=== PATIENT | female | born 1940 | race Caucasian/White ===

== ENCOUNTER 2021-09-19 10:18 | Outpatient (CLI) | payer MEDICARE, SELFPAY ==
[2021-09-19 12:01] LABS: Albumin* 4.3 g/dL (3.3-5.0); Chloride* 104 mmol/L (96-114)
[2021-09-19 12:02] LABS: Potassium* 3.7 mmol/L (3.6-5.1); Sodium* 139 mmol/L (135-149)
[2021-09-19 12:04] LABS: Aspartate Amino Transferase* 24 U/L (12-35); Bilirubin Total* 1.4 mg/dL (0.1-1.5); Blood Urea Nitrogen* 16 mg/dL (7-30); Carbon Dioxide* 27 mmol/L (20-32); Cholesterol* 216 mg/dL (90-199); Creatinine* 0.7 mg/dL (0.5-1.5); Estimated Glomerular Filt Rate 87.92; Glucose* 106 mg/dL (60-115); Total Protein* 6.7 g/dL (6.0-8.3)
[2021-09-19 12:05] LABS: Alanine Aminotransferase* 14 U/L (4-35); Alkaline Phosphatase* 105 U/L (40-150); Calcium* 9.2 mg/dL (8.4-10.6); Triglycerides* 138 mg/dL (40-149)
[2021-09-19 12:22] LABS: HDL Cholesterol* 114 mg/dL (>=50); LDL Cholesterol Calculated 74 mg/dL (<100)
== END 2021-09-19 10:19 | disposition home or self-care (01) ==
PROVIDERS: PCP Internal Medicine; Visit Provider Internal Medicine
DX: I10 Essential (primary) hypertension (principal); G45.9 Transient cerebral ischemic attack, unspecified; L50.9 Urticaria, unspecified; Z79.899 Other long term (current) drug therapy
CPT/HCPCS: 80053; 80061

== ENCOUNTER 2021-09-28 18:41 | Emergency (ER) | payer MEDICARE, SELFPAY ==
--- NOTE | 2021-09-28 19:25 | ED.NURSE ---
Pt was told she would be placed in next room, doesn't wish to wait any longer. Pt signed refusal of service form.
== END 2021-09-28 19:35 | disposition left against medical advice (07) ==
PROVIDERS: PCP Internal Medicine
DX: Z53.21 Procedure and treatment not carried out due to patient leaving prior to being seen by health care provider (principal)
CPT/HCPCS: 99281

== ENCOUNTER 2021-10-12 18:11 | Emergency (ER) | payer MEDICARE, SELFPAY ==
[2021-10-12 18:14] VITALS: BP 146/66; PULSE 84; RESP 18; TEMP 35.9; O2SAT 96; BMI 29.8
--- NOTE | 2021-10-12 18:34 | CRLHL7_ITS ---
For Patients: As a result of the Century Cures Act, medical imaging exams and procedure reports are released immediately into your electronic medical record. You may view this report before your referring provider. If you have questions, please contact your health care provider. INDICATION: stroke like symptoms, hx TIAs TECHNIQUE: Head CT without contrast. COMPARISON: CT head March 05, 2019 FINDINGS: CSF spaces: Within normal limits for age. Brain parenchyma and extra-axial spaces: There are nonspecific low attenuation white matter changes consistent with chronic microvascular disease. No intraparenchymal hemorrhage or extra-axial fluid collection. Skull base and calvarium: The visualized paranasal sinuses and mastoid air cells demonstrate no acute or significant findings. The visualized orbits are grossly unremarkable. No skull fractures. IMPRESSION: Chronic changes without acute intracranial abnormality on this noncontrast CT. Specifically, no evidence of intracranial hemorrhage. If there is further clinical concern for acute/subacute ischemia would recommend further evaluation with MRI which would be more sensitive. Please note that all CT scans at this facility use dose modulation, iterative reconstruction, and/or weight-based dosing when appropriate to reduce radiation dose to as low as reasonably achievable. Dictated by Mitch George MD @ 10/12/2021 7:22:34 PM (Electronically Signed)
[2021-10-12 18:50] LABS: Basophils Absolute Auto 0.04 K/uL (0.00-0.30); Basophils Percent Auto 0.5 % (0.0-3.0); Eosinophils Absolute Auto 0.15 K/uL (0.00-0.50); Hematocrit 45.9 % (33.0-51.0); Hemoglobin* 15.9 gm/dL (12.0-16.0); Immature Granulocytes Abs Auto 0.02 K/uL (0.00-0.30); Lymphocytes Absolute Auto 2.01 K/uL (0.90-2.90); Lymphocytes Percent Auto 26.1 % (20-44); Mean Corpuscular HGB Conc 35 gm/dL (32-36); Mean Corpuscular Hemoglobin 30 pg (26-34); Mean Corpuscular Volume 88 fL (80-100); Monocytes Percent Auto 10.3 % (0.0-11.0); Neutrophils Absolute Auto 4.68 K/uL (1.7-7.0); Neutrophils Percent Auto 60.8 % (42.0-72.0); Platelet Count* 258 K/uL (140-440); RDW Coefficient of Variation % 12.4 % (11.5-15.5); Red Blood Count 5.24 m/uL (4.00-5.20); White Blood Count* 7.69 K/uL (4.50-11.00)
--- NOTE | 2021-10-12 18:51 | ED_ITS ---
HPI - General Adult General Chief complaint: Neuro Symptoms/Altered Deficit Stated complaint: trouble speaking/numb arm Time Seen by Provider: 10/12/21 18:14 Source: patient Mode of arrival: ambulatory Limitations: no limitations History of Present Illness HPI narrative: 80-year-old female coming in today concerned about stroke. She states that earlier this evening she had an episode where her entire right arm started tingling and she had tingling and numbness of the right side of her mouth with difficulty speaking. She states that it lasted about 45 minutes but now has resolved. She has had TIAs before, usually affecting the right arm, but she states that it felt the exact same way. She states that she does not have a headache, denies recent illness, no fevers or chills. She denies nausea or vomiting. Again symptoms have resolved but she is concerned about what happened. She is on daily aspirin and Plavix. She is not on a statin. Related Data Home Medications Medication Instructions Recorded Confirmed amlodipine 10 mg tablet 10 mg PO DAILY 09/19/21 10/12/21 aspirin 81 mg chewable tablet 1 tab PO DAILY 09/19/21 10/12/21 clopidogrel 75 mg tablet 75 mg PO .Bedtime 09/19/21 10/12/21 losartan 50 mg tablet 50 mg PO DAILY 09/19/21 10/12/21 Previous Rx's Medication Instructions Recorded apixaban 2.5 mg tablet (Eliquis) 2.5 mg PO BID #60 tabs 10/12/21 metoprolol tartrate 25 mg tablet 12.5 mg PO BID #30 tabs 10/12/21 Allergies Allergy/AdvReac Type Severity Reaction Status Date / Time Cephalosporins Allergy Intermediate Rash Verified 10/12/21 18:22 penicillin V Allergy Intermediate Rash Verified 10/12/21 18:22 Review of Systems Status of ROS: Reports: 10 or more systems reviewed and unremarkable except as noted in History and below [facility] Medical History Cervical radiculopathy due to osteoarthritis of spine Hip fracture History of transient ischemic attack TIA (transient ischemic attack) Surgical History S/P bladder repair (1998) 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 Alert and oriented. Answers questions appropriately. Mood and affect are appropriate. Thoughts are goal oriented and rational. No tangential or magical thinking noted. Patient speaks in full sentences without needing to catch her breath. She does have a tremor of her voice which she states is not new. Sometimes is difficult to understand, but she can usually repeat herself if that is the case. HEENT: Normocephalic atraumatic. Pupils are equally round reactive to light. Extraocular muscles are intact. Conjunctivae are moist without any icterus noted. Moist mucous membranes. Posterior pharynx is normal. Neck is soft without any lymphadenopathy or thyromegaly. No masses are appreciated. There is no facial asymmetry. Cardiovascular: Heart is irregularly irregular S1 and S2 are present without any murmurs. Lungs: Clear to auscultation bilaterally no wheezes rhonchi or rales are appreciated. Patient takes deep breaths without any discomfort. Abdomen: Soft and nontender nondistended with normal bowel sounds. Extremities: Bilateral lower extremities are without edema. Normal DP and PT pulses. Skin: Well perfused without any obvious rashes. Strength is 5/5 of the upper and lower extremities, however she has some difficulty with holding her leg against resistance on the right side secondary to hip surgery. Reflexes are 2+ and symmetric at the knees. Cranial nerves 3- 12 are normal. [id number] is normal aside from her tremor. There is no nystagmus either horizontally or vertically. 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 Const: Vital Signs, click to edit/add: Vital Signs - 24 hr 10/12/21 18:14 10/12/21 19:30 10/12/21 19:35 Temperature 96.6 F L Pulse Rate [Left P ulse Oximeter] 97 Pulse Rate [Right Pulse Oximeter] 84 111 H Respiratory Rate 18 18 Blood Pressure [Ri ght Upper Arm] 146/66 H 163/114 H Pulse Oximetry 96 94 Oxygen Delivery Me thod Room Air Room Air Course Course Hospital Course: Head CT was unremarkable. Lab work was unremarkable. EKG showed atrial fibrillation with a pulse of 95. This appears to be new onset, the last EKG I can find is from 2019 is showed normal sinus rhythm. Patient herself says that she has never been diagnosed with atrial fibrillation in the past. During her stay she did fluctuate between a pulse of [address] up to 140. She remained asymptomatic from a cardiovascular standpoint, blood pressure remained stable and she was denying any chest pain dizziness or shortness of breath. Did consult with , cardiology at [facility], who recommended stopping Plavix and aspirin starting the patient on Eliquis. She was in agreement with starting the metoprolol. She recommended a cardiology follow-up appointment with an echocardiogram in the near future. Consultations Consultation #1: [facility] account review specialist Vital Signs Vital signs: Initial Vital Signs Temperature 96.6 F L 10/12/21 18:14 Temperature Source Temporal Artery Scan 10/12/21 18:14 Pulse Rate 84 10/12/21 18:14 Pulse Rhythm 10/12/21 18:14 Respiratory Rate 18 10/12/21 18:14 Blood Pressure 146/66 H 10/12/21 18:14 Blood Pressure Mean 92 10/12/21 18:14 Blood Pressure Position Sitting 10/12/21 18:14 Pulse Oximetry 96 10/12/21 18:14 Oxygen Delivery Method 10/12/21 18:14 Vital Signs Temperature 96.6 F L 10/12/21 18:14 Pulse Rate 84 10/12/21 18:14 Respiratory Rate 18 10/12/21 18:14 Blood Pressure 146/66 H 10/12/21 18:14 Pulse Oximetry 96 10/12/21 18:14 Oxygen Delivery Method 10/12/21 18:14 Temperature 96.6 F L 10/12/21 18:14 Pulse Rate 111 H 10/12/21 19:35 Respiratory Rate 18 10/12/21 19:35 Blood Pressure 163/114 H 10/12/21 19:35 Pulse Oximetry 94 10/12/21 19:35 Oxygen Delivery Method 10/12/21 19:35 Medical Decision Making MDM Narrative Medical decision making narrative: 80-year-old female with probable TIA now resolved. New onset atrial fibrillat ion with RVR-we will stop the patient's Plavix and aspirin and start her on Eliquis. We will also start her on metoprolol, 1st dose given in the ER today. She will follow up with her primary care provider this coming week and recommend following up with cardiology. Medical Records Medical records reviewed: Yes I reviewed the patient's medical records Lab Data Lab results reviewed: Yes I reviewed the patient's lab results Labs: Lab Results 10/12/21 10/12/21 Range/Units 01:52 01:52 WBC 7.69 (4.50-11.00) K/uL RBC 5.24 H (4.00-5.20) m/uL Hgb 15.9 (12.0-16.0) gm/dL Hct 45.9 (33.0-51.0) % MCV 88 (80-100) fL MCH 30 (26-34) pg MCHC 35 (32-36) gm/dL RDW Coeff of Sonia 12.4 (11.5-15.5) % Plt Count 258 (140-440) K/uL Neut % (Auto) 60.8 (42.0-72.0) % Lymph % (Auto) 26.1 (20-44) % Centre % (Auto) 10.3 (0.0-11.0) % Eos % (Auto) 2.0 (0.0-7.0) % Baso % (Auto) 0.5 (0.0-3.0) % Neut # (Auto) 4.68 (1.7-7.0) K/uL Lymph # (Auto) 2.01 (0.90-2.90) K/uL Centre # (Auto) 0.80 (0.00-0.90) K/UL Eos # (Auto) 0.15 (0.00-0.50) K/uL Baso # (Auto) 0.04 (0.00-0.30) K/uL Abs Immat Gran (auto) 0.02 (0.00-0.30) K/uL Sodium 135 (135-149) mmol/L Potassium 3.3 L (3.6-5.1) mmol/L Chloride 104 (96-114) mmol/L Carbon Dioxide 18 L (20-32) mmol/L BUN 20 (7-30) mg/dL Creatinine 0.9 (0.5-1.5) mg/dL Estimated Creat Clear 41.05 Estimated GFR 65 ml/min Glucose 113 (60-115) mg/dL Calcium 9.8 (8.4-10.6) mg/dL Imaging Data CT scan - head: Attestation: I have reviewed the pertinent imaging results. Radiologist's impression: FINDINGS: CSF spaces: Within normal limits for age. Brain parenchyma and extra-axial spaces: There are nonspecific low attenuation white matter changes consistent with chronic microvascular disease. No intrapare nchymal hemorrhage or extra-axial fluid collection. Skull base and calvarium: The visualized paranasal sinuses and mastoid air cells demonstrate no acute or significant findings. The visualized orbits are grossly unremarkable. No skull fractures. IMPRESSION: Chronic changes without acute intracranial abnormality on this noncontrast CT. Specifically, no evidence of intracranial hemorrhage. If there is further clinical concern for acute/subacute ischemia would recommend further evaluation with MRI which would be more sensitive. ECG Data Attestation: I personally reviewed and interpreted this ECG as follows: (Atrial fibrillation with a pulse of 95) Discharge Plan Discharge Clinical Impression: TIA (transient ischemic attack), Atrial fibrillation with RVR Patient Disposition: Home, Self-Care Condition: Improved Additional Instructions: Tomorrow, Stop Plavix and Aspirin - Start Eliquis. This is a blood thinner medication to prevent blood clots. You will also start metoprolol to slow down your pulse. Follow-up with primary care provider this coming week. You should also follow-up with Cardiology, you are due for an echocardiogram. Prescriptions: New Eliquis 2.5 mg tablet 2.5 mg PO BID Qty: 60 0RF metoprolol tartrate 25 mg tablet 12.5 mg PO BID Qty: 30 0RF No Action aspirin 81 mg tablet,chewable 1 tab PO DAILY amlodipine 10 mg tablet 10 mg PO DAILY clopidogrel 75 mg tablet 75 mg PO .Bedtime losartan 50 mg tablet 50 mg PO DAILY Follow Up/Referrals: Josué Jorge MD [Primary Care Provider] - Stand Alone Forms: [employer] Info Instructions
[2021-10-12 18:57] LABS: Slide Review Reflex No
[2021-10-12 19:09] LABS: Chloride* 104 mmol/L (96-114); Potassium* 3.3 mmol/L (3.6-5.1); Sodium* 135 mmol/L (135-149)
[2021-10-12 19:11] LABS: Creatinine* 0.9 mg/dL (0.5-1.5); Est. Creatinine Clearance* 41.05; Estimated Glomerular Filt Rate 65 ml/min
[2021-10-12 19:12] LABS: Blood Urea Nitrogen* 20 mg/dL (7-30); Calcium* 9.8 mg/dL (8.4-10.6); Carbon Dioxide* 18 mmol/L (20-32); Glucose* 113 mg/dL (60-115)
[2021-10-12 19:30] VITALS: PULSE 97
[2021-10-12 19:35] VITALS: BP 163/114; PULSE 111; RESP 18; O2SAT 94
[2021-10-12 19:45] VITALS: BP 142/93; PULSE 104; RESP 18; O2SAT 94
[2021-10-12] MEDS: METOPROLOL TARTRATE 25 MG TABLET PO (19:52)
[2021-10-12 20:05] VITALS: BP 163/93; PULSE 99; RESP 18; O2SAT 95
--- NOTE | 2021-10-12 20:13 | ED.NURSE ---
afib care notes printed off for patient.
== END 2021-10-12 20:20 | disposition home or self-care (01) ==
PROVIDERS: Emergency Provider Family Medicine; PCP Internal Medicine
DX: G45.9 Transient cerebral ischemic attack, unspecified (principal); I48.20 Chronic atrial fibrillation, unspecified
CPT/HCPCS: 36415; 70450; 80048; 85025; 93005; 99285; A9270

== ENCOUNTER 2021-10-14 08:18 | Emergency (ER) | payer MEDICARE, SELFPAY ==
[2021-10-14 08:21] VITALS: BP 121/70; PULSE 91; RESP 18; TEMP 35.9; O2SAT 94; BMI 30.4
--- NOTE | 2021-10-14 08:56 | ED_ITS ---
HPI - GI Bleed General Chief complaint: GI Bleed Stated complaint: BLACK STOOLS Time Seen by Provider: 10/14/21 08:32 History of Present Illness HPI Narrative: This 80-year-old female was seen a couple days ago in the emergency department and found to have new onset atrial fibrillation with rapid ventricular response. She had been taking aspirin and Plavix prior to that because of history of transient ischemic attacks. She discontinued that medicine and started Eliquis. She comes in today reporting black tarry stools. She took her last dose of Eliquis last night. She states that the black stools began about 12 hours after taking the 1st dose of Eliquis. She does report feeling tired but denies having any lightheadedness or shortness of breath. Related Data Home Medications Medication Instructions Recorded Confirmed amlodipine 10 mg tablet 10 mg PO DAILY 09/19/21 10/14/21 aspirin 81 mg chewable tablet 1 tab PO DAILY 09/19/21 10/14/21 clopidogrel 75 mg tablet 75 mg PO .Bedtime 09/19/21 10/14/21 losartan 50 mg tablet 50 mg PO DAILY 09/19/21 10/14/21 Previous Rx's Medication Instructions Recorded apixaban 2.5 mg tablet (Eliquis) 2.5 mg PO BID #60 tabs 10/12/21 metoprolol tartrate 25 mg tablet 12.5 mg PO BID #30 tabs 10/12/21 pantoprazole 20 mg tablet,delayed 20 mg PO DAILY #30 tabs 10/14/21 release (Protonix) Allergies Allergy/AdvReac Type Severity Reaction Status Date / Time Cephalosporins Allergy Intermediate Rash Verified 10/14/21 08:27 penicillin V Allergy Intermediate Rash Verified 10/14/21 08:27 Review of Systems Status of ROS: Reports: 10 or more systems reviewed and unremarkable except as noted in History and below Narrative: Constitutional: No fevers, no weight gain or loss. Generalized fatigue. Eyes: No discharge. No vision changes. HENT: No congestion, no sore throat, no ear pain. Cardiovascular: No chest pain, no palpitations. Respiratory: No shortness of breath, no wheezes, no cough. Gastrointestinal: No vomiting, no diarrhea. Black tarry stools. Chronic mild abdominal pain. Genitourinary: No dysuria, no hematuria. Musculoskeletal: Normal range of motion. Skin: No rashes, no pruritis. Neurological: No dizziness, weakness, sensory change, speech change. Endo/Heme/Allergies: No bruising or bleeding. No polydipsia. Pysch: no suicidality, no anxiety, no insomnia. All other systems reviewed and are negative. 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 HEENT: Normocephalic, atraumatic. Neck: Normal range of motion. Nontender. Supple. Heart: Regular. No murmurs. Normal rate. Intact distal pulses. Lungs: Clear to auscultation. No chest discomfort. No wheezes, rhonchi, or rales. Abdomen: Normal bowel sounds. Diffuse mild tenderness. No rebound tenderness. Genitalia: Deferred. Back: No midline tenderness. Normal range of motion. Extremities: Normal range of motion. No injury. Skin: Intact. No rash. Warm. No erythema or pallor. Neurologic: No altered sensation. No weakness. Alert and oriented. Psychiatric: No suicidality. No anxiety or depression. No insomnia. Nursing notes and vitals signs are reviewed. Const: Vital Signs, click to edit/add: Vital Signs - 24 hr 10/14/21 08:21 10/14/21 09:40 Temperature 96.7 F L Pulse Rate [Right Pulse Oximeter] 91 73 Respiratory Rate 18 Blood Pressure [Ri ght Upper Arm] 121/70 138/73 Pulse Oximetry 94 95 Oxygen Delivery Me thod Room Air Room Air Course Vital Signs Vital signs: Initial Vital Signs Temperature 96.7 F L 10/14/21 08:21 Temperature Source Temporal Artery Scan 10/14/21 08:21 Pulse Rate 91 10/14/21 08:21 Pulse Rhythm 10/14/21 08:21 Respiratory Rate 18 10/14/21 08:21 Blood Pressure 121/70 10/14/21 08:21 Blood Pressure Mean 87 10/14/21 08:21 Blood Pressure Position Sitting 10/14/21 08:21 Pulse Oximetry 94 10/14/21 08:21 Oxygen Delivery Method 10/14/21 08:21 Vital Signs Temperature 96.7 F L 10/14/21 08:21 Pulse Rate 91 10/14/21 08:21 Respiratory Rate 18 10/14/21 08:21 Blood Pressure 121/70 10/14/21 08:21 Pulse Oximetry 94 10/14/21 08:21 Oxygen Delivery Method 10/14/21 08:21 Temperature 96.7 F L 10/14/21 08:21 Pulse Rate 73 10/14/21 09:40 Respiratory Rate 18 10/14/21 08:21 Blood Pressure 138/73 10/14/21 09:40 Pulse Oximetry 95 10/14/21 09:40 Oxygen Delivery Method 10/14/21 09:40 MDM - GI Bleed MDM Narrative Medical decision making narrative: This patient comes in reporting black stools and was recently started on Eliquis because of new onset of atrial fibrillation. She had an IV placed and received normal saline. She has maintained normal vital signs. She did receive an IV dose of Protonix 40 mg. Lab results returned with reassuring findings. Her hemoglobin is around 13. She states that she did get up to the bathroom and had a normal bowel movement that was not black. Additionally her EKG shows a normal sinus rhythm with occasional PACs. I advised her to discontinue the Eliquis. She can resume her Plavix but hold aspirin for about a week. She is okay to return home and is advised to return if recurrent symptoms happen. Lab Data Labs: Lab Results 10/14/21 10/14/21 10/14/21 Range/Units 09:15 09:15 09:15 WBC 7.43 (4.50-11.00) K/uL RBC 4.37 (4.00-5.20) m/uL Hgb 13.4 (12.0-16.0) gm/dL Hct 39.1 (33.0-51.0) % MCV 90 (80-100) fL MCH 31 (26-34) pg MCHC 34 (32-36) gm/dL RDW Coeff of Sonia 12.3 (11.5-15.5) % Plt Count 234 (140-440) K/uL Neut % (Auto) 78.7 H (42.0-72.0) % Lymph % (Auto) 12.8 L (20-44) % [place] % (Auto) 6.9 (0.0-11.0) % Eos % (Auto) 0.8 (0.0-7.0) % Baso % (Auto) 0.5 (0.0-3.0) % Neut # (Auto) 5.80 (1.7-7.0) K/uL Lymph # (Auto) 1.00 (0.90-2.90) K/uL [place] # (Auto) 0.50 (0.00-0.90) K/UL Eos # (Auto) 0.06 (0.00-0.50) K/uL Baso # (Auto) 0.04 (0.00-0.30) K/uL Abs Immat Gran (auto) 0.02 (0.00-0.30) K/uL INR 1.24 H (0.91-1.10) Sodium 138 (135-149) mmol/L Potassium 3.9 (3.6-5.1) mmol/L Chloride 109 (96-114) mmol/L Carbon Dioxide 24 (20-32) mmol/L BUN 56 H (7-30) mg/dL Creatinine 0.8 (0.5-1.5) mg/dL Estimated Creat Clear 39.39 Estimated GFR 75 ml/min Glucose 116 H (60-115) mg/dL Calcium 8.6 (8.4-10.6) mg/dL ECG Data Attestation: I personally reviewed and interpreted this ECG as follows: Interpretation: Sinus rhythm with occasional PACs. Rate is 82 beats per minute. There are no specific ST or T-wave abnormalities. Discharge Plan Discharge Clinical Impression: GI bleed Condition: Improved Additional Instructions: Discontinue Eliquis. Hold aspirin for about a week. Okay to resume taking Plavix. Follow-up with primary physician or return if recurrent symptoms happen. Take Protonix as directed. Prescriptions: New pantoprazole [Protonix] 20 mg tablet,delayed release (DR/EC) 20 mg PO DAILY Qty: 30 2RF No Action aspirin 81 mg tablet,chewable 1 tab PO DAILY Hold Instructions: started on eliquis amlodipine 10 mg tablet 10 mg PO DAILY clopidogrel 75 mg tablet 75 mg PO .Bedtime Hold Instructions: taking eliquis and stopped losartan 50 mg tablet 50 mg PO DAILY Eliquis 2.5 mg tablet 2.5 mg PO BID Qty: 60 0RF metoprolol tartrate 25 mg tablet 12.5 mg PO BID Qty: 30 0RF Follow Up/Referrals: Josué Jorge MD [Primary Care Provider] - Stand Alone Forms: [employer] Info Instructions
[2021-10-14] MEDS: PANTOPRAZOLE SODIUM 40 MG INJ IVP (09:23)
[2021-10-14] MEDS: 0.9 % SODIUM CHLORIDE 1000 ml 1,000 ML IV (09:23)
[2021-10-14 09:33] LABS: Basophils Absolute Auto 0.04 K/uL (0.00-0.30); Basophils Percent Auto 0.5 % (0.0-3.0); Eosinophils Absolute Auto 0.06 K/uL (0.00-0.50); Eosinophils Percent Auto 0.8 % (0.0-7.0); Hematocrit 39.1 % (33.0-51.0); Hemoglobin* 13.4 gm/dL (12.0-16.0); Immature Granulocytes Abs Auto 0.02 K/uL (0.00-0.30); Lymphocytes Percent Auto 12.8 % (20-44); Mean Corpuscular HGB Conc 34 gm/dL (32-36); Mean Corpuscular Hemoglobin 31 pg (26-34); Mean Corpuscular Volume 90 fL (80-100); Monocytes Percent Auto 6.9 % (0.0-11.0); Neutrophils Percent Auto 78.7 % (42.0-72.0); Platelet Count* 234 K/uL (140-440); RDW Coefficient of Variation % 12.3 % (11.5-15.5); Red Blood Count 4.37 m/uL (4.00-5.20); White Blood Count* 7.43 K/uL (4.50-11.00)
[2021-10-14 09:34] LABS: Slide Review Reflex No
[2021-10-14 09:37] LABS: Chloride* 109 mmol/L (96-114); Potassium* 3.9 mmol/L (3.6-5.1); Sodium* 138 mmol/L (135-149)
[2021-10-14 09:39] LABS: Creatinine* 0.8 mg/dL (0.5-1.5); Est. Creatinine Clearance* 39.39; Estimated Glomerular Filt Rate 75 ml/min
[2021-10-14 09:40] VITALS: BP 138/73; PULSE 73; O2SAT 95
[2021-10-14 09:40] LABS: Blood Urea Nitrogen* 56 mg/dL (7-30); Calcium* 8.6 mg/dL (8.4-10.6); Carbon Dioxide* 24 mmol/L (20-32); Glucose* 116 mg/dL (60-115)
[2021-10-14 09:41] LABS: INR 1.24 (0.91-1.10)
[2021-10-14 10:00] VITALS: BP 146/86; PULSE 73; O2SAT 97
== END 2021-10-14 10:33 | disposition home or self-care (01) ==
PROVIDERS: Emergency Provider Emergency Medicine Emergency Medical Services; PCP Internal Medicine
DX: K92.2 Gastrointestinal hemorrhage, unspecified (principal)
CPT/HCPCS: 36415; 80048; 85025; 85610; 93005; 96374; 99284; C9113; J7030

== ENCOUNTER 2021-11-05 12:45 | Outpatient (CLI) | payer MEDICARE, SELFPAY ==
--- OUTSIDE RECORDS SUMMARY | 2021-11-05 12:51 | XMS_ITS | Clinical Summary ---
:1940 Author Organization [facility] [place] [address] Care Team Providers Name Role Phone Josué Jorge MD Primary Care Provider Allergies Active Allergy Reactions Severity Noted Date Comments Cephalosporins Penicillins Erythema 01/23/2015 Medications Medication Sig Dispensed Refills Start Date End Date Status ATENOLOL 50 MG TAB take 1 tablet 0 Active (50mg) by oral route once daily ZESTRIL 40 MG TAB take 1 tablet 0 Active (40mg) by oral route once daily MULTIVITAMIN ORAL take 1 tablet 0 Active daily CALCIUM 600 600 MG TAB 1 tablet daily 0 Active PLAVIX 75 MG TAB take 1 tablet 0 Active (75mg) by oral route once daily amLODIPine (NORVASC) 5 2 07/29/2014 Active mg tablet lisinopril (PRINIVIL; 3 07/29/2014 Active ZESTRIL) 20 mg tablet Active Problems Problem Noted Date TIA (transient ischemic attack) 02/21/2017 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 Lumbar spondylosis 09/29/2014 Hallux valgus (acquired) 11/19/2007 Unspecified essential hypertension Obesity, unspecified Immunizations Name Administration Dates Next Due Influenza, IIV3 (Age >=3 years) 01/03/2006 Td (Age >=7 Years) 04/22/2006 Family History Medical History Relation Name Comments Heart Disease Father Hypertension Mother Stroke Mother Relation Name Status Comments Father Mother Social History Tobacco Use Types Packs/Day Years Used Date Never Smoker Tobacco Cessation: Counseling Given: Yes Alcohol Use Standard Drinks/Week Comments Yes 16.7 (1 standard drink = 0.6 oz pure alc ohol) Sex Assigned at Date Recorded Not on file Obstetrics History Para Term AB IAB SAB Ectopic Multiple Living Live Births 3 3 Date Outcome GA Total Labor/2nd/3rd Weight Sex Delivery Anes PTL Essence A 1 A5 Name Clin Labor Para Para Para Last Filed Vital Signs Vital Sign Reading Time Taken Comments Blood Pressure 148/81 04/06/2015 7:47 AM MOUNTER Pulse 62 04/06/2015 7:47 AM MOUNTER Temperature 36.8 ??C (98.2 ??F) 04/06/2015 7:47 AM MOUNTER Respiratory Rate - - Oxygen Saturation 97% 04/06/2015 7:47 AM MOUNTER Inhaled Oxygen Concentration - - Weight 87.7 kg (193 lb 6.4 oz) 04/06/2015 7:47 AM MOUNTER Height 162.6 cm (5' 4.02) 04/06/2015 7:47 AM MOUNTER Body Mass Index 33.18 04/06/2015 7:47 AM MOUNTER Plan of Treatment Upcoming Encounters Date Type Specialty Care Team Description 11/05/2021 Orders Only Health Maintenance Due Date Last Done Comments COVID-19 vaccine series (#1) 04/30/1941 Tdap 1952 Depression screening for age 12+ 1953 Zoster (shingles) series for age 50+ (1 of 2) 10/29/1991 DEXA/DXA scan for age 65+ 2006 Pneumococcal series for age 65+ (1 - PCV) 2006 BMI (ht and wt on same day) for age 18+ 04/06/2016 04/06/19 16 Tetanus booster 04/22/2016 04/22/2006 Influenza for age 65+ 11/08/2021 01/03/2006 Results Not on filefrom Last 3 Months Insurance Payer Benefit Plan / Subscriber ID Effective Dates Phone Addre ss Type Group MEDICARE PART B MEDICARE PART B [id number] 2007-[employer] ATTN: CLAIMS - HB USE ONLY HB ONLY t [address] [facility] 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
== END 2021-11-05 12:46 | disposition home or self-care (01) ==
LOC: RAD 12:47
PROVIDERS: PCP Internal Medicine; Visit Provider Internal Medicine
DX: I48.91 Unspecified atrial fibrillation (principal); I34.0 Nonrheumatic mitral (valve) insufficiency
CPT/HCPCS: 93306

== ENCOUNTER 2022-07-01 12:46 | Outpatient (CLI) | payer MEDICARE, SELFPAY ==
--- NOTE | 2022-07-01 13:00 | CRLHL7_ITS ---
For Patients: As a result of the Cures Act, medical imaging exams and procedure reports are released immediately into your electronic medical record. You may view this report before your referring provider. If you have questions, please contact your health care provider. BILATERAL SCREENING MAMMOGRAM WITH COMPUTER-AIDED DETECTION AND TOMOSYNTHESIS TECHNIQUE: CC and MLO views were obtained. These mammographic images have been obtained using full-field digital technique. These mammographic images were interpreted with the benefit of computer-aided detection. Breast Tomosynthesis was used in this interpretation. COMPARISON FILM: 05/04/21, 04/21/20, 03/17/19 FINDINGS: The breasts are heterogeneously dense, which may obscure small masses. IMPRESSION: There is no radiographic evidence for malignancy. ASSESSMENT: BI-RADS Category 2: Benign RECOMMENDATION: Routine screening mammogram in 1 year. A lay language report of this examination will be provided to the patient. Cristian Dial M.D. Diagnostic/Nuclear Medicine Radiologist [email or web address] Transcribed: 8:36 a.m. PT/Dictated by: Cristian Dial MD @ 07/02/2022 8:24:00 AM (Electronically Signed)
== END 2022-07-01 12:47 | disposition home or self-care (01) ==
LOC: MAMMO 12:47
PROVIDERS: PCP Internal Medicine; Visit Provider Internal Medicine
DX: Z12.31 Encounter for screening mammogram for malignant neoplasm of breast (principal); R92.2 Inconclusive mammogram
CPT/HCPCS: 77063; 77067

== ENCOUNTER 2023-03-21 11:51 | Outpatient (CLI) | payer MEDICARE, SELFPAY ==
--- OUTSIDE RECORDS SUMMARY | 2023-03-24 04:28 | XMS_ITS | Continuity of Care Document ---
Author Name Unknown Organization [facility] Address [address] [place] [address] Phone Care Team Providers Care Asbestos Worker Name Role Phone Manas Cline Unavailable Unavailable Allergies, Adverse Reactions, Alerts Substance Reaction Status Criticality Cephalosporins Active No Informatio n PENICILLIN whole body redness Active No Info rmation Medications Medication Instructions Dosage Effective Dates (start - stop) Status Comments AMLODIPINE BESILATE (unknown strength) Not Available - Active LOSARTAN POTASSIUM (unknown strength) Not Available - Active PLAVIX (unknown strength) Not Available - Active Procedures Procedure Date Office/Outpatient Visit,Dionne Prado 2018 Office consultation, moderate 8 Advance Directives Directive Yes / No Effective Date File Name No Information Encounters Encounter Description Practice Location Reason(s) For Visit Diagnoses Date Provider Providers Copied on Encounter [facility], [address], [place], [place], [address], [place] tel:[phone] [facility] No Information 9 Harry Malagon. [facility], [address], [place], [place], [address] , [place]. tel:[phone] Office/Outpat ient Visit,Dionne [facility], [address], [place], [place], [address], [place] tel:[phone] [facility] [place] Cervicalgia 9 Harry Malagon. [facility], [address], [place], [place], [address] , [place]. tel:[phone] Referring Provider: [facility] [address] [place], [address]. tel:[phone] Office consultation, moderate Z [facility], [address], [place], [address], [place] tel:[phone] [facility] No Information Aug-0 8 Meena Reyes. [facility], [address] [place] [address], [address], [place], [place], [address] , [place]. tel:[phone] Referring Provider: Josué [facility]Department [facility] [address] [place], [address]. tel:[phone] Family History Family Member Type Diagnosis Age At Onset No Information Payers Payer name Insurance type Covered constitution party ID Zoltan bales(s) [facility] [id number] Medicare [facility] BL [id number] 1 Social History Type Description Quantity Date [...]
--- OUTSIDE RECORDS SUMMARY | 2023-03-24 04:28 | XMS_ITS | Clinical Summary ---
Author Name Unknown Organization [facility] Address [place], [place] [address] Care Team Providers Care Force Variation Equipment Tender Name Role Phone Josué Jorge MD Primary Care Provider Allergies Active Allergy Reactions Criticality Noted Date [...] CDT Oxygen Saturation 97% 04/06/2015 7:47 AM ANCHOR TACKER Inhaled Oxygen Concentration - - Weight 80.3 kg (177 lb) 11/09/2021 3:15 PM CDT Height 162.6 cm (5' 4.02) 04/06/2015 7:47 AM CS T Body Mass Index 30.37 04/06/2015 7:47 AM ANCHOR TACKER Plan of Treatment Health Maintenance Due Date [...] for age 65+ 11/08/2022 01/03/2006 Care Teams Force Variation Equipment Tender Relationship Specialty Start Date End Date Josué Jorge MD [address] [place], [place] [id number] PCP - General 12/13/14
== END 2023-03-21 11:52 | disposition home or self-care (01) ==
LOC: AMB 03-24 04:26
PROVIDERS: PCP Internal Medicine; Visit Provider Student in an Organized Health Care Education/Training Program
DX: R29.810 Facial weakness (principal); R53.1 Weakness
CPT/HCPCS: A0425; A0429

== ENCOUNTER 2023-03-21 12:07 | Emergency (ER) | payer MEDICARE, SELFPAY ==
[2023-03-21] VITALS (30 sets, daily range): BP systolic 107–140; BP diastolic 64–96; PULSE 75–113; RESP 16; TEMP 36.6; O2SAT 86–98
--- NOTE | 2023-03-21 12:19 | CRLHL7_ITS ---
For Patients: As a result of the Century Cures Act, medical imaging exams and procedure reports are released immediately into your electronic medical record. You may view this report before your referring provider. If you have questions, please contact your health care provider. INDICATION: Right leg weakness, bilateral hand/arm weakness. TECHNIQUE: CT head without contrast. COMPARISON: CT head dated 10/12/2021. FINDINGS: Cerebral parenchyma: No evidence of acute territorial infarct. No acute intraparenchymal hemorrhage. Bilateral basal ganglia calcifications noted. No significant mass effect/midline shift. Normal meyer-white matter differentiation. Extra-axial spaces: No extra-axial collection or hemorrhage. Ventricles: Unremarkable. Calvarium: Intact. Visualized paranasal sinuses/mastoid air cells: Mild polypoid mucosal thickening of the right maxillary sinus. Posterior fossa: No cerebellar tonsillar herniation. Visualized orbits: Thinning of the bilateral lens. No acute abnormality. IMPRESSION: No acute intracranial abnormality. Please note that all CT scans at this facility use dose modulation, iterative reconstruction, and/or weight-based dosing when appropriate to reduce radiation dose to as low as reasonably achievable. Dictated by Nayan Soler MD @ 03/21/2023 12:58:27 PM (Electronically Signed)
--- NOTE | 2023-03-21 12:28 | CRLHL7_ITS ---
For Patients: As a result of the Century Cures Act, medical imaging exams and procedure reports are released immediately into your electronic medical record. You may view this report before your referring provider. If you have questions, please contact your health care provider. INDICATION: Right leg and bilateral hand weakness. TECHNIQUE: Multisequence multiplanar MRI of the head without contrast. COMPARISON: MRI brain dated 12/18/2018. FINDINGS: No evidence of acute ischemia. Slight progression of scattered dose was confluent bilateral supratentorial white matter hyperintensities. Stable bilateral basal ganglia and thalamic lacunar type infarcts. No ventricular obstruction. Slight progression of mild diffuse parenchymal volume loss. Flow voids of the larger intracranial arteries are preserved. Normal calvarial bone marrow signal intensity. Evidence of prior cataract surgery. Paranasal sinuses and mastoid air cells are predominantly clear. IMPRESSION: 1. No acute intracranial abnormality. Specifically, no evidence of acute ischemia. 2. Slight progression of mild global parenchymal volume loss and chronic small vessel ischemic changes. 3. 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 Dictated by Gomez Beyer MD @ 03/21/2023 1:38:39 PM (Electronically Signed)
--- NOTE | 2023-03-21 12:35 | ED.GENADULT ---
HPI - General Adult General Chief complaint: Neuro Symptoms/Altered Deficit Stated complaint: CVA Time Seen by Provider: 03/21/23 12:18 History of Present Illness HPI narrative: Patient's symptoms started around 11 am reporting she feels weaker than usual. Family made decision to call EMS. 82-year-old woman presenting to the emergency department with concern of a stroke. She is brought here by EMS. Recollection is a little challenged initially reported as an hour prior but ultimately may has been as long as 2 hours prior to arrival here was trying to how work on assembly of upper she was making the. Suddenly realized she was having trouble manipulating it. She noted significant weakness in her right leg and shaking weakness in both hands. On arrival report was that had unilateral weakness with suspected stroke symptoms per report specifically the right leg. As I question further it appears that this is a chronic circumstance after a right total hip and a revision. who arrives later following initial imaging, was contacted by Yi when this all started. He found her shaking all over and unable to move otherwise; frozen. But alert. She does endorse underlying tremor disorder of some sort. Degree of workup and diagnosis is unclear to me. She is anticoagulated initially uncertain but looks like on review of records that has atrial fibrillation and is chronically anticoagulated with b.i.d. Eliquis. She reports a history of a stroke in the past; review of records suggest a TIA. No history of seizures noted in herself or family. She reports herself to be feeling better now; symptoms mostly resolved. Related Data Home Medications Medication Instructions Recorded Confirmed multivitamin 1 tab PO QDAY 12/12/21 03/18/23 Previous Rx's Medication Instructions Recorded metoprolol tartrate 25 mg tablet See Rx Instructions .Route 10/10/22 .COMPLEX #90 tabs pantoprazole 20 mg tablet,delayed 20 mg PO DAILY GERD #90 tabs 10/10/22 release (Protonix) amlodipine 10 mg tablet 10 mg PO DAILY Hypertension #90 01/20/23 tabs losartan 50 mg tablet 50 mg PO DAILY #90 tabs 03/06/23 apixaban 5 mg tablet (Eliquis) 5 mg PO BID #60 tabs 03/18/23 rivaroxaban 20 mg tablet (Xarelto) 20 mg PO QPM Atrial Fibrillation 03/18/23 #30 tabs Allergies Allergy/AdvReac Type Severity Reaction Status Date / Time Cephalosporins Allergy Intermediate Rash Verified 03/18/23 14:53 penicillin V Allergy Intermediate Rash Verified 03/18/23 14:53 Review of Systems Status of ROS: Reports: 6 or more systems reviewed and unremarkable except as noted in History and below [facility] Medical History Numbness ?R20.0 - Anesthesia of skin (ICD-10) Atrial fibrillation ?I48.91 - Unspecified atrial fibrillation (ICD-10) TIA (transient ischemic attack) ?G45.9 - Transient cerebral ischemic attack, unspecified (ICD-10) History of transient ischemic attack ?Z86.73 - Personal history of transient ischemic attack (TIA), and cerebral infarction without residual deficits (ICD-10) Hip fracture ?S72.009A - Fracture of unspecified part of neck of unspecified femur, initial encounter for closed fracture (ICD-10) Cervical radiculopathy due to osteoarthritis of spine ?M47.22 - Other spondylosis with radiculopathy, cervical region (ICD-10) Surgical History 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) ?Z96.641 - Presence of right artificial hip joint (ICD-10) S/P bladder repair (1998) ?Z98.890 - Other specified postprocedural states (ICD-10) Social History Narrative: , 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 Does seem somewhat anxious. GCS 15 Generalized tremor. Particularly affecting her speech. Is not exactly a spasmodic dysphonia. She has to pause I think as the effort becomes too much or anxiety builds affecting it too much. There is generalized tremor with movement. She has to assist flexion of the right thigh. Remedies are well perfused without edema. Pupils are equal and appropriately reactive at 3 mm. Cranial nerves 2-12 are intact. She is breathing easily. Lungs are clear. Heart seems to be in a regular rhythm other than some ectopic beats. Abdomen is soft nontender. Head is atraumatic. I do not appreciate sensory losses or any focal weaknesses other than mentioned as above. Const: Vital Signs, click to edit/add: Vital Signs - 24 hr 03/21/23 13:04 03/21/23 13:05 03/21/23 13:22 Temperature Pulse Rate 84 87 92 Pulse Rate [Pulse Oximeter] Respiratory Rate Blood Pressure 135/96 H Blood Pressure [Ri ght Upper Arm] Pulse Oximetry 97 98 86 L Oxygen Delivery Me thod 03/21/23 13:30 03/21/23 13:33 03/21/23 13:34 Temperature Pulse Rate 75 84 80 Pulse Rate [Pulse Oximeter] Respiratory Rate Blood Pressure 117/81 Blood Pressure [Ri ght Upper Arm] Pulse Oximetry 95 96 95 Oxygen Delivery Va thod 03/21/23 13:35 03/21/23 13:45 03/21/23 13:47 Temperature Pulse Rate 80 82 Pulse Rate [Pulse Oximeter] Respiratory Rate Blood Pressure 122/83 Blood Pressure [Ri ght Upper Arm] Pulse Oximetry 95 97 96 Oxygen Delivery Va thod 03/21/23 13:48 03/21/23 13:50 03/21/23 14:00 Temperature 97.9 F Pulse Rate 84 77 Pulse Rate [Pulse Oximeter] 89 Respiratory Rate 16 Blood Pressure Blood Pressure [Ri ght Upper Arm] 139/80 Pulse Oximetry 95 96 95 [facility] 03/21/23 14:02 03/21/23 14:15 03/21/23 14:17 Temperature Pulse Rate 86 77 86 Pulse Rate [Pulse Oximeter] Respiratory Rate Blood Pressure 128/86 136/78 Blood Pressure [Ri ght Upper Arm] Pulse Oximetry 95 96 95 Oxygen Delivery Va thod 03/21/23 14:30 03/21/23 14:32 03/21/23 14:33 Temperature Pulse Rate 86 89 88 Pulse Rate [Pulse Oximeter] Respiratory Rate Blood Pressure 140/71 H Blood Pressure [Ri ght Upper Arm] Pulse Oximetry 95 95 94 Oxygen Delivery Va thod 03/21/23 14:45 03/21/23 14:47 03/21/23 14:48 Temperature Pulse Rate 113 H 93 92 Pulse Rate [Pulse Oximeter] Respiratory Rate Blood Pressure 107/82 Blood Pressure [Ri ght Upper Arm] Pulse Oximetry 95 97 96 Oxygen Delivery Me thod 03/21/23 15:00 03/21/23 15:02 03/21/23 15:03 Temperature Pulse Rate 83 88 82 Pulse Rate [Pulse Oximeter] Respiratory Rate Blood Pressure 126/76 Blood Pressure [Ri ght Upper Arm] Pulse Oximetry 97 96 98 Oxygen Delivery Me thod 03/21/23 15:15 03/21/23 15:16 03/21/23 15:30 Temperature Pulse Rate 84 85 86 Pulse Rate [Pulse Oximeter] Respiratory Rate Blood Pressure 136/64 Blood Pressure [Ri ght Upper Arm] Pulse Oximetry 96 97 97 Oxygen Delivery Me thod 03/21/23 15:32 03/21/23 15:33 03/21/23 15:45 Temperature Pulse Rate 90 86 91 Pulse Rate [Pulse Oximeter] Respiratory Rate Blood Pressure 132/88 Blood Pressure [Ri ght Upper Arm] Pulse Oximetry 96 96 94 Oxygen Delivery Me thod Documenting provider has reviewed patient's vital signs: yes Course Vital Signs Vital signs: Initial Vital Signs Pulse Rate 84 03/21/23 13:04 Blood Pressure 135/96 H 03/21/23 13:04 Blood Pressure Mean 109 H 03/21/23 13:04 Pulse Oximetry 97 03/21/23 13:04 Vital Signs Pulse Rate 84 03/21/23 13:04 Blood Pressure 135/96 H 03/21/23 13:04 Pulse Oximetry 97 03/21/23 13:04 Temperature 97.9 F 03/21/23 13:50 Pulse Rate 91 03/21/23 15:45 Respiratory Rate 16 03/21/23 13:50 Blood Pressure 132/88 03/21/23 15:32 Pulse Oximetry 94 03/21/23 15:45 Oxygen Delivery Method Room Air 03/21/23 13:50 Medications Administered Medications: Discontinued Medications Generic Name Dose Route Start Last Admin Trade Name Freq PRN Reason Stop Dose Admin Acetaminophen 1,000 mg 03/21/23 13:44 03/21/23 13:49 Acetaminophen 500 Mg Tablet PO 03/21/23 13:45 1,000 mg ONCE ONE Administration Sodium Chloride 1,000 mls @ 1,000 mls/hr 03/21/23 12:18 03/21/23 15:03 0.9 % Sodium Chloride 1000 Ml IV 03/21/23 13:17 Infused .Q1H ONE Infusion Medical Decision Making MDM Narrative Medical decision making narrative: My initial impression is that this is an exacerbation of this tremor disorder, not dissimilar to a parkinsonian spell for lack of better terminology. The symmetry of this seems inconsistent with stroke. No history of seizures in would be unlikely at this point in life but would do head imaging looking for tumor or other. Has not had any for otherwise. No chronic headaches reported. May have been an arrhythmia. Perhaps RVR in the setting of AFib. Noted by to have had exacerbations of anxiety in the past. Will evaluate with CT head imaging looking for bleed since anticoagulated and then anticipating MRI brain. IV normal saline at least 1 L. I did speak with Stroke Neuro upon arrival. In agreement with plan for imaging a basic head CT moving to MRI. Head CT reviewed by me looks absent of any bleed or asymmetry. Over-read by Radiology with chronic changes and polyps in the right maxillary sinus. Over time in the emergency department monitored on replanting machine crew without event. EKG reviewed by me does show atrial fibrillation rate of 72 Seems to have better recall and less stressed. Speaking with a little more ease. Family reports how she is experiencing episodes of just freezing when potentially encountering eyes. Daughter had to literally take both hands and dries her into the garage at 1 point. She is quite fearful of having a fall. She does have a cane available and prefers that to the available walker. Comes out in conversation that she says she can not carry her coffee cup with her walker. I think there are some modifications to the walker that could be accomplished here. She did use the walker last week her notes. MRI of brain over-read by radiology. I do review images COMPARISON: MRI brain dated 12/18/2018. FINDINGS: No evidence of acute ischemia. Slight progression of scattered dose was confluent bilateral supratentorial white matter hyperintensities. Stable bilateral basal ganglia and thalamic lacunar type infarcts. No ventricular obstruction. Slight progression of mild diffuse parenchymal volume loss. Flow voids of the larger intracranial arteries are preserved. Normal calvarial bone marrow signal intensity. Evidence of prior cataract surgery. Paranasal sinuses and mastoid air cells are predominantly clear. IMPRESSION: 1. No acute intracranial abnormality. Specifically, no evidence of acute ischemia. 2. Slight progression of mild global parenchymal volume loss and chronic small vessel ischemic changes. 3. 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 On reassessment is just tired. Labs overall reassuring. There is some hematuria without evidence of infection otherwise. Platelets were little bit lower about is acceptable at 130,000. Did discuss again with Neurology. No further recommendations. Already anticoagulated. I think follow-up for this tremor disorder would be recommended. See patient discharge plan In hindsight I think we should have tested for COVID considering suppressed lymphocytes and her reporting fatigue. The fatigue may be just related to the stress of the event both emotional and physical. If urine culture grows singular organism, I would consider treating since I could imagine this related/triggering this shaking episode as well. She has chronic frequency. Lab Data Lab results reviewed: Yes I reviewed the patient's lab results Labs: Lab Results 03/21/23 03/21/23 Range/Units 13:15 14:45 WBC 5.96 (4.50-11.00) K/uL RBC 5.39 H (4.00-5.20) m/uL Hgb 15.4 (12.0-16.0) gm/dL Hct 46.4 (33.0-51.0) % MCV 86 (80-100) fL MCH 29 (26-34) pg MCHC 33 (32-36) gm/dL RDW Coeff of Sonia 11.7 (11.5-15.5) % Plt Count 130 L (140-440) K/uL Neut % (Auto) 66.8 (42.0-72.0) % Lymph % (Auto) 17.3 L (20-44) % [place] % (Auto) 11.7 H (0.0-11.0) % Eos % (Auto) 3.2 (0.0-7.0) % Baso % (Auto) 0.7 (0.0-3.0) % Neut # (Auto) 3.98 (1.7-7.0) K/uL Lymph # (Auto) 1.00 (0.90-2.90) K/uL [place] # (Auto) 0.70 (0.00-0.90) K/UL Eos # (Auto) 0.19 (0.00-0.50) K/uL Baso # (Auto) 0.04 (0.00-0.30) K/uL Abs Immat Gran (auto) 0.02 (0.00-0.30) K/uL Imm/Tot Granulo (auto) 0.3 % INR 1.27 H (0.91-1.10) APTT 29 (23-33) Seconds Sodium 138 (135-149) mmol/L Potassium 3.5 L (3.6-5.1) mmol/L Chloride 104 (96-114) mmol/L Carbon Dioxide 22 (20-32) mmol/L Anion Gap 12 (7-15) mEq/L BUN 20 (7-30) mg/dL Creatinine 0.8 (0.5-1.5) mg/dL Estimated GFR 74 ml/min Glucose 129 H (60-115) mg/dL Calcium 9.0 (8.4-10.6) mg/dL Troponin I < 0.01 L (0.01-0.04) ng/mL Urine Color Brown A (Yellow) Urine Appearance Clear (Clear) Urine pH 6.0 (5.0-8.5) Ur Specific [place] 1.020 (1.000-1.030) Urine Protein Negative (Negative) Urine Glucose (UA) Negative (Negative) Urine Ketones Negative (Negative) Urine Blood Trace-intact A (Negative) Urine Nitrite Negative (Negative) Urine Bilirubin Negative (Negative) Urine Urobilinogen 0.2 (0.2-1.0) Ur Leukocyte Esterase Negative (Negative) Urine RBC 2-5 A (0-2) Urine WBC 2-5 (0-5) Ur Squamous Epith Cells Few (None-Few) Urine Bacteria Moderate A (None) Discharge Plan Discharge Clinical Impression: Episode of shaking, Hematuria, Weakness Patient Disposition: Home w/ Parent or Adult Condition: Improved Prescriptions: No Action multivitamin Tablet 1 tab PO QDAY Xarelto 20 mg tablet 20 mg PO QPM Qty: 30 3RF Rx Instructions: must administer with evening meal Eliquis 5 mg tablet 5 mg PO BID Qty: 60 3RF metoprolol tartrate 25 mg tablet See Rx Instructions .ROUTE .COMPLEX Qty: 90 1RF Dose Instruction: take 0.5 tablets (12.5mg) by mouth twice daily. Rx Instructions: take 0.5 tablets (12.5mg) by mouth twice daily. pantoprazole [Protonix] 20 mg tablet,delayed release (DR/EC) 20 mg PO DAILY Qty: 90 2RF amlodipine 10 mg tablet 10 mg PO DAILY Qty: 90 0RF losartan 50 mg tablet 50 mg PO DAILY Qty: 90 3RF
--- NOTE | 2023-03-21 13:02 | ED.NURSE ---
Took report from LARISA Soto at this time.
[2023-03-21 13:21] LABS: Basophils Absolute Auto 0.04 K/uL (0.00-0.30); Basophils Percent Auto 0.7 % (0.0-3.0); Eosinophils Absolute Auto 0.19 K/uL (0.00-0.50); Eosinophils Percent Auto 3.2 % (0.0-7.0); Hematocrit 46.4 % (33.0-51.0); Hemoglobin* 15.4 gm/dL (12.0-16.0); Immature Granulocytes Abs Auto 0.02 K/uL (0.00-0.30); Immature Granulocytes Pct Auto 0.3 %; Lymphocytes Percent Auto 17.3 % (20-44); Mean Corpuscular HGB Conc 33 gm/dL (32-36); Mean Corpuscular Hemoglobin 29 pg (26-34); Mean Corpuscular Volume 86 fL (80-100); Monocytes Percent Auto 11.7 % (0.0-11.0); Neutrophils Absolute Auto 3.98 K/uL (1.7-7.0); Neutrophils Percent Auto 66.8 % (42.0-72.0); Platelet Count* 130 K/uL (140-440); RDW Coefficient of Variation % 11.7 % (11.5-15.5); Red Blood Count 5.39 m/uL (4.00-5.20); White Blood Count* 5.96 K/uL (4.50-11.00)
[2023-03-21 13:23] LABS: Slide Review Reflex No
[2023-03-21 13:35] LABS: Chloride* 104 mmol/L (96-114); Potassium* 3.5 mmol/L (3.6-5.1); Sodium* 138 mmol/L (135-149)
[2023-03-21 13:38] LABS: Anion Gap 12 mEq/L (7-15); Blood Urea Nitrogen* 20 mg/dL (7-30); Carbon Dioxide* 22 mmol/L (20-32); Creatinine* 0.8 mg/dL (0.5-1.5); Estimated Glomerular Filt Rate 74 ml/min; Glucose* 129 mg/dL (60-115)
[2023-03-21 13:39] LABS: INR 1.27 (0.91-1.10); Prothrombin Time 16.8 Seconds
[2023-03-21 13:40] LABS: Partial Thromboplastin Time* 29 Seconds (23-33)
[2023-03-21] MEDS: 0.9 % SODIUM CHLORIDE 1000 ml 1,000 ML IV (13:45)
[2023-03-21] MEDS: ACETAMINOPHEN 500 MG TABLET 1000 MG PO (13:49)
[2023-03-21 13:51] LABS: Troponin I* < 0.01 ng/mL (0.01-0.04)
--- OUTSIDE RECORDS SUMMARY | 2023-03-21 14:04 | XMS_ITS | Clinical Summary ---
Author Name Unknown Organization [facility] Address [place], [place] [address] Care Team Providers Care Specimen Accessioner Name Role Phone Josué Jorge MD Primary Care Provider [phone] Allergies Active Allergy Reactions Criticality Noted Date Comments Cephalosporins Apixaban Diarrhea 11/08/2021 Penicillins Erythema 01/23/2015 Medications Medication Sig Dispensed Refills Start Date End Date Status MULTIVITAMIN ORAL take 1 tablet daily 0 Active CALCIUM 600 600 MG TAB 1 tablet daily 0 Active PLAVIX 75 MG TAB take 1 tablet (75mg) by oral route once daily 0 Active amLODIPine (NORVASC) 5 mg tablet Take 2 Tablets (10 mg) by mouth once daily. 2 11/08/2021 Active losartan (COZAAR) 50 mg tablet 0 09/22/2021 Active metoprolol tartrate (LOPRESSOR) 25 mg tablet Take 12.5 mg by mouth two times daily. 0 10/13/2021 Active pantoprazole (PROTONIX) 20 mg tablet TAKE ONE TABLET (20mg) BY MOUTH ONE TIME DAILY 0 10/14/2021 Active aspirin (ECOTRIN) 81 mg enteric coated tabletIndications:Parox ysmal atrial fibrillation (HC) Take 2 Tablets (162 mg) by mouth once daily with a meal. 0 11/09/2021 Active Active Problems Problem Noted Date Diagnosed Date TIA (transient ischemic attack) 02/21/2017 Lumbar [...] Tobacco Use Types Packs/Day Years Used Date Smoking Tobacco: Never Tobacco Cessation:Counseling Given: Yes Alcohol Use Standard Drinks/Week Comments Yes 16.7 (1 standard drink = 0.6 oz pure alcohol) Social Connections Answer Date Recorded Frequency of Communication with Friends and Fami ly Not on file 11/09/2021 Sex and Gender Information Value Date Recorded Sex Assigned at Not on file Gender Identity Not on file Sexual Orientation Not on file Obstetrics History Para Term AB IAB SAB Ectopic Multiple Livin g Live Births 3 3 Date Outcome GA Total Labor Labor/2nd/3rd Weight Sex Delivery Anes PTL Essence A1 A5 Name Cl in Para Para Para Last Filed Vital Signs Vital Sign Reading Time Taken Comments Blood Pressure 170/84 11/09/2021 3:15 PM CDT Pulse 60 11/09/2021 3:15 PM CDT Temperature 36.8 ??C (98.2 ??F) 04/06/2015 7:47 AM CS T Respiratory Rate 14 11/09/2021 3:15 PM CDT Oxygen Saturation 97% 04/06/2015 7:47 AM GLOBAL COMPENSATION MANAGER Inhaled Oxygen Concentration - - Weight 80.3 kg (177 lb) 11/09/2021 3:15 PM CDT Height 162.6 cm (5' 4.02) 04/06/2015 7:47 AM CS T Body Mass Index 30.37 04/06/2015 7:47 AM GLOBAL COMPENSATION MANAGER Plan of Treatment Health Maintenance Due Date Last Done Comments COVID-19 vaccine series (#1) 04/30/1941 Tdap 1952 Depression screening for age 12+ 1953 Zoster (shingles) series for age 50+ (1 of 2) 10/28/18 92 DEXA/DXA scan for age 65+ 2006 Medicare Wellness for age 65+ 2006 Pneumococcal series for age 65+ (1 of 1 - PCV) 007 BMI (ht and wt on same day) for age 18+ 04/06/2016 0 04/06/2015 Tetanus booster 04/22/2016 04/22/2006 Influenza for age 65+ 11/08/2022 01/03/2006 Care Teams Specimen Accessioner Relationship Specialty Start Date End Date Josué Jorge MD [address] [place], [place] [id number] PCP - General 12/13/14
--- OUTSIDE RECORDS SUMMARY | 2023-03-21 14:04 | XMS_ITS | Continuity of Care Document ---
Author Name Unknown Organization [facility] Address [address] [place] [address] Phone Care Team Providers Care Scale Manager Name Role Phone Manas Cline Unavailable Unavailable Allergies, Adverse Reactions, Alerts Substance Reaction Status Criticality Cephalosporins Active No Informatio n PENICILLIN whole body redness Active No Info rmation Medications Medication Instructions Dosage Effective Dates (start - stop) Status Comments PLAVIX (unknown strength) Not Available - Active LOSARTAN POTASSIUM (unknown strength) Not Available - Active AMLODIPINE BESILATE (unknown strength) Not Available - Active Procedures Procedure Date Office/Outpatient Visit,Dionne Prado 2018 Office consultation, moderate 8 Advance Directives Directive Yes / No Effective Date File Name No Information Encounters Encounter Description Practice Location Reason(s) For Visit Diagnoses Date Provider Providers Copied on Encounter [facility], [address], [place], [place], [id number], [place] tel:[phone] [facility] No Information 9 Harry Malagon. [facility], [address], [place], [place], [id number] , [place]. tel:[phone] Office/Outpat ient Visit,Dionne [facility], [address], [place], [place], [id number], [place] tel:[phone] [facility] [place] Cervicalgia 9 Harry Malagon. [facility], [address], [place], [place], [id number] , [place]. tel:[phone] [facility] [place] [address] [place], [address]. tel:[phone] Office consultation, moderate Z [facility], [address], [place], [address], [place] tel:[phone] [facility] No Information Aug-0 8 Meena Reyes. [facility], [address] [place] [address], [address], [place], [place], [id number] , [place]. tel:[phone] Referring Provider: [facility] [place] [address] [place], [address]. tel:[phone] Family History Family Member Type Diagnosis Age At Onset No Information Payers Payer name Insurance type Covered libertarian ID Zoltan bales(s) [facility] [id number] Medicare [facility] [id number] 1 Social History Type Description Quantity Date Captured Comments Sex Female Smoking Status No Information Chief Complaint And Reason For Visit No Information Reason For Referral Reason For Referral No Information History Of Present Illness Encounter Date Complaint History Of Prese nt Illness No Information Functional Status Date Functional Assessmen t No Information Instructions Date Instruction Additional Infor mation No Information Assessments Type Assessment Date No Information Patient Care Teams Name Effective Dates (start - stop) Status Members No Information
--- NOTE | 2023-03-21 14:49 | ED.NURSE ---
U/A obtained and brought to the lab. Patient ambulated well to the bathroom and back with use of a walker. States that she uses a cane at home.
[2023-03-21 14:54] LABS: Appearance Urine Clear (Clear); Bilirubin Urine Negative (Negative); Blood Urine Trace-intact (Negative); Color Urine Brown (Yellow); Glucose Urine Negative (Negative); Ketones Urine Negative (Negative); Leukocyte Esterase Urine Negative (Negative); Nitrite Urine Negative (Negative); Protein Urine Negative (Negative); Urobilinogen Urine 0.2 (0.2-1.0)
[2023-03-21 15:01] LABS: Bacteria Urine Moderate; Squamous Epithelial Cell Urine Few (None-Few)
--- NOTE | 2023-03-21 16:01 | ED.NURSE ---
Patient ready for discharge, IV removed. Waiting for her to return to pick her up.
== END 2023-03-21 16:07 | disposition home or self-care (01) ==
PROVIDERS: Emergency Provider Family Medicine; PCP Internal Medicine
DX: R31.9 Hematuria, unspecified (principal); R25.1 Tremor, unspecified; R53.1 Weakness
CPT/HCPCS: 36415; 70450; 70551; 80048; 81001; 84484; 85025; 85610; 85730; 87086; 93005; 94761; 96360; 99284; 99285; A9270; J7030

== ENCOUNTER 2023-04-02 13:55 | Outpatient (CLI) | payer MEDICARE, SELFPAY ==
--- OUTSIDE RECORDS SUMMARY | 2023-04-04 07:36 | XMS_ITS | Clinical Summary ---
Author Name Unknown Organization [facility] Address [place], [place] [address] Care Team Providers Care Trimmer Hand Name Role Phone Josué Jorge MD Primary Care Provider [phone] Allergies Active Allergy Reactions Criticality Noted Date [...] CDT Oxygen Saturation 97% 04/06/2015 7:47 AM TALENT ACQUISITION SOURCER Inhaled Oxygen Concentration - - Weight 80.3 kg (177 lb) 11/09/2021 3:15 PM CDT Height 162.6 cm (5' 4.02) 04/06/2015 7:47 AM CS T Body Mass Index 30.37 04/06/2015 7:47 AM TALENT ACQUISITION SOURCER Plan of Treatment Health Maintenance Due Date [...] for age 65+ 11/08/2022 01/03/2006 Care Teams Trimmer Hand Relationship Specialty Start Date End Date Josué Jorge MD [address] [place], [place] [id number] PCP - General 12/13/14
--- OUTSIDE RECORDS SUMMARY | 2023-04-04 07:36 | XMS_ITS | Continuity of Care Document ---
Author Name Unknown Organization [facility] Address [address] [place] [address] Phone Care Team Providers Care Cuff Setter Lockstitch Name Role Phone Manas Cline Unavailable Unavailable [...] Copied on Encounter [facility], [address], [place], [place], [address], [place] tel:[phone] [facility] No Information 9 Harry Malagon. [facility], [address], [place], [place], [address] , [place]. tel:[phone] Office/Outpat ient Visit,NewDionne [facility], [address], [place], [place], [address], [place] tel:[phone] [facility] [place] Cervicalgia 9 Harry Malagon. [facility], [address], [place], [place], [address] , [place]. tel:[phone] Referring Provider: [facility] [place] [address] [place], [address]. tel:[phone] Office consultation, moderate Z [facility], [address], [place], [address], [place] tel:[phone] [facility] No Information Aug-0 8 Meena Reyes. [facility], [address] [place] [address], [address], [place], [place], [address] , [place]. tel:[phone] Referring Provider: [facility] [place] [address] [place], [address]. tel:[phone] Family History Family Member Type Diagnosis Age At Onset No Information Payers Payer name Insurance type Covered alliance party ID Zoltan bales(s) [facility] [id number] Medicare [facility] BL [id number] 1 Social History Type Description Quantity Date [...]
== END 2023-04-02 13:56 | disposition home or self-care (01) ==
LOC: NFLDREF 04-04 07:34
PROVIDERS: PCP Internal Medicine; Referring Provider Internal Medicine; Visit Provider Internal Medicine
DX: R31.9 Hematuria, unspecified (principal); R25.1 Tremor, unspecified
CPT/HCPCS: 87086

== ENCOUNTER 2023-05-13 10:23 | Outpatient (REF) | payer MEDICARE, SELFPAY ==
[2023-05-13 11:34] LABS: Cholesterol* 210 mg/dL (90-199); Triglycerides* 99 mg/dL (40-149)
[2023-05-13 11:50] LABS: HDL Cholesterol* 122 mg/dL (>=50); LDL Cholesterol Calculated 68 mg/dL (<100)
[2023-05-13 11:51] LABS: Free T4 Free Thyroxine* 1.24 ng/dL (0.70-1.85)
== END 2023-05-13 10:24 | disposition home or self-care (01) ==
LOC: NPINS 10:23
PROVIDERS: PCP Internal Medicine; Visit Provider Psychiatry & Neurology Neurology
DX: I63.9 Cerebral infarction, unspecified (principal); G20.C Parkinsonism, unspecified; G25.2 Other specified forms of tremor
CPT/HCPCS: 80061; 84439; 84443

== ENCOUNTER 2023-06-12 14:00 | Outpatient (RCR) | payer MEDICARE, SELFPAY ==
--- NOTE | 2023-04-09 15:08 | PT.OPEX ---
Please review and sign the attached physical therapy evaluation completed on 04/09/23. Thank you. PT [facility] Outpatient Eval PT [facility] Outpatient Eval Start: 04/09/23 10:37 Freq: Status: Active Protocol: Document 04/09/23 11:55 TLQ (Rec: 04/09/23 15:02 TLQ [id number]) E-signed By Tierra Hawley DPT Physical Therapy Outpatient Evaluation Insurance Information Recert Due Date 07/08/23 Insurance Name Medicare B,TV [employer] [facility] [place] Insurance Information/Comments AARP Medicare Complete Medical Diagnosis Tremors R25.1 Treating Diagnosis Impaired balance R26.81 Abnormal gait R26.9 Muscle weakness M62.81 Referring MD Josué Jorge MD Subjective Subjective Patient states on 03/26/23 she went to stand up from her recliner when she had to ask her (Juan Manuel) for help, was not able to move. This was not normal for her, is regularly able to move around on her own with use of her cane. Family decided to call an Ambulance to the hospital, was able to discharge home the same day. Since this incident she has developed a new tremor in her hands, seeing OT for this. Feels hesitant with standing up, first few steps are more of a stutter then is able to walk better. States doesn't walk well as she's had two hip replacements in her right hip. Denies any recent falls. Scheduled to see a neurologist on 05/09/23. Home environment: Lives at home with her . Most needs met on the main level, laundry is located in the basement. Has one step to get in/out of the garage, no railing. Head CT at [facility] on 03/21/23 with the following impression: No acute intracranial abnormality. Brain MRI at [facility] on 03/21/23 with the following impression: 1. No acute intracranial abnormality. Specifically, no evidence of acute ischemia. 2. Slight progression of mild global parenchymal volume loss and chronic small vessel ischemic changes. 3. 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 PMHx: thrombocytopenia, hematuria, atrial fibrillation , TIA, osteoarthritis, HTN, R hip fracture/ELBERT, speech tremor Pain Comments No pain at time of eval Date of Next Physician Visit 05/09/23 Current Work Status Retired Preferred Name Sig Precautions Therapy Limitations/Systems Review Not Limited Objective Other/Pertinent Objective BALANCE 30 second STS: 7 repetitions, use of hands on armrests, anxious to try without hands ( <9 risk for falls for age/ gender) TU seconds, use of SEC on L Romber seconds e.o. Tandem stance: R 7 seconds, L 16 seconds SLS: R unable, L <1 second Meneses Balance Scale: 29/56 (<45 risk of falls) GAIT ambulates with use of SEC on the L, slow irwin, hesitant with initiating first steps gait speed: 0.56 m/s (<1.0 m/s risk of falls) STAIR NAVIGATION: step to with railing, LLE as strong/ support limb STRENGTH hip flexion: R 3, L 4- hip extension: R 4-, L 4- hip abduction: 4- B, pain in lateral R hip hip adduction: 4 B knee flexion: 4 B knee extension: R 3+, L4+ ankle dorsiflexion: 4+ B Assessment Assessment/Impression Patient is a 82 year old female who presents to outpatient physical therapy following an incident of sudden weakness on 03/26/23. Patient was brought to ED where head CT and brain MRI were completed without significant findings to explain acute onset of symptoms, patient status had improved throughout the day and was able to return home without hospital stay. Sees a neurologist on 05/09/23 for further assessment. Prior to incident patient was IND with ADL's, using a cane for ambulation since her R ELBERT a few years ago. Since the incident patient describes new onset of hand tremors which she is addressing in outpatient OT, also reports difficulty with standing up and initial steps during gait. Today's examination indicated lower extremity muscle weakness, more pronounced in the RLE. Patient is also at a high risk for falls based on performance with 30 second sit to stand, TUG, gait speed, and Meneses Balance Scale. Patient was verbally educated on today's examination findings and benefits of physical therapy interventions , she verbally agreed to POC. She will greatly benefit from skilled physical therapy interventions to address strength and balance deficits to reduce fall risk with gait and mobility. Primary Functional Limitations sit to stand, gait, static balance, dynamic balance, transitional movements, stairs , muscle weakness Plan of Care Rehabilitation Potential Good Physical Therapy Goals In 12 weeks (07/02/23): - R quad strength will improve to 4/5 for improved muscle control with transfers and stair navigation. - BBS score will improve to > 35.3 (MDC 6.3 for initial scores 25-34) to decrease risk of falls with gait and mobility. - Patient will complete TUG with use of LRD in <20 seconds to be IND for basic transfers . - Patient will complete 9 during 30 second sit to stand for decreased risk of falls during transfers. Treatment Plan/Direct Interventions Gait Training,Manual Therapy, Neuromuscular Re-ed,Self-Care/ Home Management,Therapeutic Activities,Therapeutic Exercises Frequency/Duration 1-2x/week for 12 weeks Patient Will Be Discharged From Therapy Completion of LTG(s),Skills Plateau,Independent w/HEP, Independently Progressing Evaluation Billing Untimed Code Treatment Minutes 45 Complexity Low Certification Information Initial Certification Date 04/09/23 Ending Certification Date 07/08/23 Provider Signature Shows Agreement With POC & Medical Necessity Physician Signature & Date Requested Please Sign/Date Here Physician Comment/Change : Physician NPI Number #
--- NOTE | 2023-04-13 13:03 | OT.OPGNE2 ---
OT Outpatient General/Neuro Eval OT Outpatient General/Neuro Eval* Start: 04/08/23 16:18 Freq: Status: Active Protocol: Document 04/08/23 16:24 SMW (Rec: 04/08/23 17:03 SMW Laptop) E-signed By Adelaida Varghese OT OT Outpatient Evaluation Details Type Type Eval Complexity Low Insurance Information Insurance Information Insurance Information Medicare B Outpatient History/Precautions Current Condition Referring Provider Dr. Jorge Medical Diagnoses PMx: TTA(transient ischemic attack), hip fracture, speech tremor. Client has neurologist appointment scheduled for May 08 to determine next steps and possible diagnosis after onset of tremors. Treatment Diagnoses Tremors and limitations in functional mobilty. Date of Onset 03/28/2023 Medical/Functional History Medical History Reviewed Yes Prior Level of Function/Mobility Patient reports that she was I in all ADLs and IADLs. Social History Number of Floors (Floors) 1 Number of Stairs to Enter (Stairs) 3 Lives With: Spouse Physical Barriers in Home Environment Standard Step Height Employment Status Retired Patient Subjective Subjective Patient Subjective Client reports that her tremors are new and constant which makes tasks like eating and writing difficult. Coordination Assessment Test Side Bilateral Finger to Nose Test Normal Performance Finger to Therapist's Finger Test L hand tremors impacted accuracy when touching therapist's finger. Cognitive Assessments Performed Cognitive Assessments Performed Cali Cognitive Assessment (MOCA) Results The client completed the MOCA 8.1, in which she scored 20/30 with deficits in the area of memory. Further cognititve testing is recommended. Assessment Assessment Assessment Client is an 82 year old female who was reffered to the [facility] outpatient OT clinic by Dr. Jorge following an incident on in which the client reported the inabilty to move and was admitted to the ER. As a result of the incident, the ct developed tremors. As of today, there is not a medical diagnosis. However, the client has an appointment scheduled with her neurologist for May 08. Client reports that the tremors cause difficulty with tasks such as writing and eating with utensils. She is also noticeably more fatigued and requires frequent naps. Furthermore, her family reports that her speech tremor is worseining and she is having mobility issues that cause anxiety with walking. She uses a cane for ambulation . ROM and MMT screen results indicate client's strength and ROM is WFL. The finger to therapist coordination test indicated that the client's L hand tremors mildly impact accuracy and coordination. The client is R hand dominant. The client would benefit from skilled OT services to provide stategies and modifcations to promote independence and improvement in ADL and IADL activity. Further cognitive testing is also recommended. A referral to PT was sent to Dr Elver Jorge to further address mobilty concerns. Occupational Therapy Treatment Plan - OP Potential Rehabilitation Potential Good Set Goals Goals Set with Patient Yes Goals Goals By the end of 6 weeks the client will... 1. Complete cognitive testing and verbalize understanding of the results and necessary safety adaptations. 2. Trial AE equipment/ modification to improve functional abilities related to tremors. Treatment Plan Treatment Plan Evaluation,Therapeutic Exercise,Therapeutic Activities,Self-Care/Home Management,Education Expected Frequency 1x Week Expected Duration 6-8 Weeks Certification Certification Statement I Certify That: Therapy Services Provided, Therapy Plan Established, Therapy Plan Reviewed Certification Information Clinic ID # [id number] Initial Certification Date 04/08/23 Recertification Due Date 04/08/23 Provider Signature Shows Agreement With POC & Medical Necessity Physician Comment/Change Comment or Changes Physician NPI Number # Student Supervision Student Supervision Patient Treatment Provided by Student Yes with Supervision Student Documentation Reviewed Yes Student Signature Aileen Ragland, BONI
== END 2023-08-06 10:55 | disposition home or self-care (01) ==
PROVIDERS: PCP Internal Medicine; Visit Provider Internal Medicine
DX: G45.9 Transient cerebral ischemic attack, unspecified (principal); R25.1 Tremor, unspecified; Z51.89 Encounter for other specified aftercare
CPT/HCPCS: 97110; 97112; 97116; 97161; 97165; 97530; 97535

== ENCOUNTER 2023-07-03 09:12 | Outpatient (CLI) | payer MEDICARE, SELFPAY ==
--- NOTE | 2023-07-03 09:15 | MM_ITS ---
Patient: TEREZA LUND Facility:?[facility] Patient ID:?[id number] Site Patient ID:?[id number]. Site :?[id number] Study:?XRay-Breast Bilateral 3D W/CAD-07/03/2023 9:55:40 AM Ordering Physician:Pedro Final Report: BILATERAL DIGITAL SCREENING MAMMOGRAM WITH TOMOSYNTHESIS AND COMPUTER-AIDED DETECTION CLINICAL HISTORY: Routine screening exam. COMPARISON: 07/01/2022, 05/04/2021, 04/21/2020, 03/17/2019. TECHNIQUE: Digital mammogram in CC and MLO projections including computer-aided detection (CAD). Tomosynthesis utilized. BREAST COMPOSITION: There are areas of scattered fibroglandular density. FINDINGS: RIGHT Breast: Focal asymmetric density retroareolar plane, slightly medially, 5 cm from the nipple. LEFT Breast: No suspicious findings. IMPRESSION: RIGHT breast asymmetry/mass. RECOMMENDATIONS: Additional mammographic views of the RIGHT breast including 3D spot compression CC/MLO. RIGHT breast ultrasound may also be required. BI-RADS Category 0: Incomplete: Need Additional Imaging Evaluation and/or Prior Mammograms for Comparison [facility] will contact the patient for follow-up. A lay language report of this examination will be provided to the patient. Dictated by Dell Narayanan MD @ 07/03/2023 10:02:27 AM jj/Dictated by: Dell Narayanan MD @ 07/03/2023 10:02:00 AM Signed by:?Dell Narayanan MD @07/03/2023 1:02:23 PM (Electronic Signature)
--- OUTSIDE RECORDS SUMMARY | 2023-07-03 09:15 | XMS_ITS | Clinical Summary ---
Author Name Unknown Organization [facility] Address [place], [place] [address] Care Team Providers Care Glass Cleaning Machine Tender Name Role Phone Josué Jorge MD Primary Care Provider [phone] Allergies Active Allergy Reactions Criticality Noted Date [...] 11/08/2021 Active losartan (COZAAR) 50 mg tablet 09/22/2021 Active metoprolol tartrate (LOPRESSOR) 25 mg tablet Take 12.5 mg by mouth two times daily. 10/13/2021 Active pantoprazole (PROTONIX) 20 mg tablet TAKE ONE TABLET (20mg) BY MOUTH ONE TIME DAILY 10/14/2021 Active aspirin (ECOTRIN) 81 mg enteric [...] 3 3 Date Outcome GA Total Labor Labor//3rd Weight Sex Delivery Anes PTL Essence A1 A5 Name Cl in Para Para Para Last Filed Vital Signs Vital Sign Reading Time Taken Comments Blood Pressure 170/84 11/09/2021 3:15 PM CDT Pulse 60 11/09/2021 3:15 PM CDT Temperature 36.8 ??C (98.2 ??F) 04/06/2015 7:47 AM CS T Respiratory Rate 14 11/09/2021 3:15 PM CDT Oxygen Saturation 97% 04/06/2015 7:47 AM RETAIL PHARMACY TECHNICIAN Inhaled Oxygen Concentration - - Weight 80.3 kg (177 lb) 11/09/2021 3:15 PM CDT Height 162.6 cm (5' 4.02) 04/06/2015 7:47 AM CS T Body Mass Index 30.37 04/06/2015 7:47 AM RETAIL PHARMACY TECHNICIAN Plan of Treatment Health Maintenance Due Date Last Done Comments Tdap 1952 Depression screening for age 12+ 1953 Zoster (shingles) series for age 50+ (1 of 2) 10/28/18 92 DEXA/DXA scan for age 65+ 2006 Medicare Wellness for age 65+ 2006 Pneumococcal series for age 65+ (1 of 1 - PCV) 007 BMI (ht and wt on same day) for age 18+ 04/06/2016 0 04/06/2015 Tetanus booster 04/22/2016 04/22/2006 COVID-19 vaccine series (2022-24 season) 3 Influenza for age 65+ 11/09/2023 01/03/2006 Care Teams Glass Cleaning Machine Tender Relationship Specialty Start Date End Date Josué Jorge MD [address] [place], [place] [id number] PCP - General 12/13/14
== END 2023-07-03 09:13 | disposition home or self-care (01) ==
LOC: MAMMO 09:13
PROVIDERS: PCP Internal Medicine; Visit Provider Internal Medicine
DX: Z12.31 Encounter for screening mammogram for malignant neoplasm of breast (principal); N63.10 Unspecified lump in the right breast, unspecified quadrant
CPT/HCPCS: 77063; 77067

== ENCOUNTER 2023-07-22 09:28 | Outpatient (CLI) | payer MEDICARE, SELFPAY ==
--- OUTSIDE RECORDS SUMMARY | 2023-07-22 09:30 | XMS_ITS | Continuity of Care Document ---
Author Name Unknown Organization [facility] Address [address] [place] [address] Phone Care Team Providers Care Deicer Inspector Pneumatic Name Role Phone Manas Cline Unavailable Unavailable [...] Copied on Encounter [facility], [address], [place], [place], [address], [place] tel:[phone] [facility] No Information 9 Harry Malagon. [facility], [address], [place], [place], [address] , [place]. tel:[phone] Office/Outpat ient Visit,Dionne [facility], [address], [place], [place], [address], [place] tel:[phone] [facility] [place] Cervicalgia 9 Harry Malagon. [facility], [address], [place], [place], [address] , [place]. tel:[phone] Referring Provider: [facility] [address] [place], [address]. tel:[phone] Office consultation, moderate Z [facility], [address], [place], [address], [place] tel:[phone] [facility] No Information Aug-0 8 Meena Reyes. [facility], [address] [place] [address], [address], [place], [place], [address] , [place]. tel:[phone] Referring Provider: [facility] [address] [place], [address]. tel:[phone] Family History Family Member Type Diagnosis Age At Onset No Information Payers Payer name Insurance type Covered green party ID Zoltan bales(s) [facility] [id number] Medicare [facility] [id number] 1 Social History Type Description Quantity Date [...]
--- OUTSIDE RECORDS SUMMARY | 2023-07-22 09:30 | XMS_ITS | Clinical Summary ---
Author Name Unknown Organization [facility] Address [place], [place] [address] Care Team Providers Care Corporate Executive Name Role Phone Josué Jorge MD Primary [...] CDT Oxygen Saturation 97% 04/06/2015 7:47 AM INOCULATOR Inhaled Oxygen Concentration - - Weight 80.3 kg (177 lb) 11/09/2021 3:15 PM CDT Height 162.6 cm (5' 4.02) 04/06/2015 7:47 AM CS T Body Mass Index 30.37 04/06/2015 7:47 AM INOCULATOR Plan of Treatment Health Maintenance Due Date [...] for age 65+ 11/09/2023 01/03/2006 Care Teams Corporate Executive Relationship Specialty Start Date End Date Josué Jorge MD [address] [place], [place] [id number] PCP - General 12/13/14
--- NOTE | 2023-07-22 09:45 | MM_ITS ---
Patient: TEREZA LUND Facility:?[facility] Patient ID:?[id number] Site Patient ID:?[id number] Site :?[id number] Study:?XRay-Breast Right 3D W/CAD-07/22/2023 10:31:54 AM Ordering Physician:?Josué Jorge Final Report: DIGITAL DIAGNOSTIC RIGHT MAMMOGRAM USING TOMOSYNTHESIS AND COMPUTER-AIDED DETECTION RIGHT BREAST ULTRASOUND CLINICAL HISTORY: RIGHT breast mass/asymmetry. COMPARISON: 07/03/2023. TECHNIQUE: Digital RIGHT mammogram in two projections. Tomosynthesis and computer-aided detection utilized. Real-time ultrasound imaging of RIGHT breast with imaging documentation. BREAST COMPOSITION: There are areas of scattered fibroglandular density. FINDINGS: 3D spot compression CC/MLO RIGHT breast mammogram images submitted. Persistent nodular density in the retroareolar plane without architectural distortion. No suspicious calcifications. Targeted RIGHT breast ultrasound performed. In the retroareolar breast tissue, mid depth, there is a simple anechoic cyst measuring 11 x 3 x 11 millimeters. Normal breast tissue present elsewhere. No suspicious findings. IMPRESSION: Benign fibrocystic change RIGHT breast retroareolar change with a simple cyst measuring 1.1 cm. No evidence of malignancy. RECOMMENDATIONS: Annual BILATERAL screening mammography. Results and recommendations discussed with the patient. BI-RADS Category 2: Benign A lay language report of this examination will be provided to the patient. Dictated by Dell Narayanan MD @ 07/22/2023 10:43:04 AM jj/Dictated by: Dell Narayanan MD @ 07/22/2023 10:43:00 AM Signed by:?Dell Narayanan MD @07/22/2023 1:27:30 PM (Electronic Signature)
--- NOTE | 2023-07-22 10:15 | US_ITS ---
Patient: TEREZA LUND Facility:?[facility] Patient ID:?[id number] Site Patient ID:?[id number] Site :?[id number] Study:?XRay-Breast Right 3D W/CAD-07/22/2023 10:31:54 AM Ordering Physician:?Josué Jorge Final Report: DIGITAL DIAGNOSTIC RIGHT MAMMOGRAM USING TOMOSYNTHESIS AND COMPUTER-AIDED DETECTION RIGHT BREAST ULTRASOUND CLINICAL HISTORY: RIGHT breast mass/asymmetry. COMPARISON: 07/03/2023. TECHNIQUE: Digital RIGHT mammogram in two projections. Tomosynthesis and computer-aided detection utilized. Real-time ultrasound imaging of RIGHT breast with imaging documentation. BREAST COMPOSITION: There are areas of scattered fibroglandular density. FINDINGS: 3D spot compression CC/MLO RIGHT breast mammogram images submitted. Persistent nodular density in the retroareolar plane without architectural distortion. No suspicious calcifications. Targeted RIGHT breast ultrasound performed. In the retroareolar breast tissue, mid depth, there is a simple anechoic cyst measuring 11 x 3 x 11 millimeters. Normal breast tissue present elsewhere. No suspicious findings. IMPRESSION: Benign fibrocystic change RIGHT breast retroareolar change with a simple cyst measuring 1.1 cm. No evidence of malignancy. RECOMMENDATIONS: Annual BILATERAL screening mammography. Results and recommendations discussed with the patient. BI-RADS Category 2: Benign A lay language report of this examination will be provided to the patient. Dictated by Dell Narayanan MD @ 07/22/2023 10:43:04 AM jj/Dictated by: Dell Narayanan MD @ 07/22/2023 10:43:00 AM Signed by:?Dell Narayanan MD @07/22/2023 1:27:30 PM (Electronic Signature)
== END 2023-07-22 09:29 | disposition home or self-care (01) ==
LOC: MAMMO 09:28
PROVIDERS: PCP Internal Medicine; Visit Provider Internal Medicine
DX: N63.10 Unspecified lump in the right breast, unspecified quadrant (principal); R92.8 Other abnormal and inconclusive findings on diagnostic imaging of breast
CPT/HCPCS: 76642; 77065; G0279

== ENCOUNTER 2024-07-14 09:03 | Outpatient (CLI) | payer MEDICARE, SELFPAY ==
--- NOTE | 2024-07-14 09:15 | CRLHL7_ITS ---
For Patients: As a result of the Century Cures Act, medical imaging exams and procedure reports are released immediately into your electronic medical record. You may view this report before your referring provider. If you have questions, please contact your health care provider. INDICATION: BILATERAL SCREENING MAMMOGRAM, ASYMPTOMATIC 83 Y/O FEMALE COMPARISON: 07/22/23, 07/03/23, 07/01/22 TECHNIQUE: CC and MLO views were obtained. These mammographic images have been obtained using full-field digital technique. These mammographic images were interpreted with the benefit of computer aided detection and tomosynthesis. BREAST COMPOSITION: There are scattered areas of fibroglandular density. FINDINGS: No suspicious findings. ASSESSMENT: BI-RADS 1 Negative RECOMMENDATION: Annual screening mammogram. A lay language report of this examination will be provided to the patient. Dictated by: Dell Narayanan MD @ 07/14/2024 09:42:40 (Electronically Signed)
== END 2024-07-14 09:04 | disposition home or self-care (01) ==
LOC: MAMMO 09:04
PROVIDERS: PCP Internal Medicine; Visit Provider Internal Medicine
DX: Z12.31 Encounter for screening mammogram for malignant neoplasm of breast (principal)
CPT/HCPCS: 77063; 77067

== ENCOUNTER 2024-09-01 09:34 | Outpatient (CLI) | payer MEDICARE, SELFPAY | END 2024-09-01 09:35 | disposition home or self-care (01) | LOC: AMB 09-02 13:45 | PROVIDERS: PCP Internal Medicine; Visit Provider Emergency Medicine | DX: S79.911A Unspecified injury of right hip, initial encounter (principal); W18.30XA Fall on same level, unspecified, initial encounter; Y92.009 Unspecified place in unspecified non-institutional (private) residence as the place of occurrence of the external cause | CPT/HCPCS: A0425; A0433 ==

== ENCOUNTER 2024-09-01 10:22 | Inpatient (IN) | payer MEDICARE, SELFPAY ==
[2024-09-01] VITALS (25 sets, daily range): BP systolic 121–139; BP diastolic 61–89; PULSE 77–112; RESP 18–20; TEMP 36.4–37.3; O2SAT 91–97; BMI 28.3; BMI 30.9; BMI 31.0
--- OUTSIDE RECORDS SUMMARY | 2024-09-01 10:39 | XMS_ITS | Clinical Summary ---
Author Organization [facility] Address [address] [place] [id number] Care Team Providers Care Wrap Checker Name Role Phone Josué Jorge MD Primary Care Provider Allergies Active Allergy Reactions Criticality Noted Date Comments Cephalosporins Apixaban Diarrhea 11/08/2021 Penicillins Erythema 01/23/2015 Medications MULTIVITAMIN ORAL take 1 tablet daily 0 Active CALCIUM 600 600 MG TAB 1 tablet daily 0 Active PLAVIX 75 MG TAB take 1 tablet (75mg) by oral route once daily 0 Active amLODIPine (NORVASC) 5 mg tablet Take 2 Tablets (10 mg) by mouth once daily. 2 2 Active losartan (COZAAR) 50 mg tablet 2 Active metoprolol tartrate (LOPRESSOR) 25 mg tablet Take 12.5 mg by mouth two times daily. 2 Active pantoprazole (PROTONIX) 20 mg tablet TAKE ONE TABLET (20mg) BY MOUTH ONE TIME DAILY 2 Active aspirin (ECOTRIN) 81 mg enteric coated tabletIndications :Paroxysmal atrial fibrillation (HC) Take 2 Tablets (162 mg) by mouth once daily with a meal. 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 Lumbar spondylosis 09/29/2014 Hallux valgus (acquired) 11/19/2007 Unspecified essential hypertension Obesity, unspecified Immunizations Immunization Administration Dates Next Due Influenza, IIV3 (Age [...] and Fami ly Not on file 11/09/2021 Comments Unknown Sex and Gender Information Value Date Recorded Sex Assigned at Not on file Legal Sex Female 5:24 AM CHUTE OPERATOR Gender Identity Not on file Sexual Orientation Not on file Obstetrics History Para Term AB IAB SAB Ectopic Multiple Livin g Live Births 3 3 Date Outcome GA Total Labor Labor/2nd/3rd Weight Sex Type Anes PTL Essence A1 A5 Name Clin Para Para Para Last Filed Vital Signs Vital Sign Reading Time Taken Comments Blood Pressure 170/84 11/09/2021 3:15 PM CDT Pulse 60 11/09/2021 3:15 PM CDT Temperature 36.8 C (98.2 F) 04/06/2015 7:47 AM CHUTE OPERATOR Respiratory Rate 14 11/09/2021 3:15 PM CDT Oxygen Saturation 97% 04/06/2015 7:47 AM CHUTE OPERATOR Inhaled Oxygen Concentration - - Weight 80.3 kg (177 lb) 11/09/2021 3:15 PM CDT Height 162.6 cm (5' 4.02) 04/06/2015 7:47 AM CS T Body Mass Index 30.37 04/06/2015 7:47 AM CHUTE OPERATOR Plan of Treatment Health Maintenance Due Date Last Done Comments Tdap 1951 Depression screening for age 12+ 1952 Pneumococcal series for age 50+ (1 of 1 - PCV) 10/29/1991 Zoster (shingles) series for age 50+ (1 of 2) 10/29/1991 DEXA/DXA scan for age 65+ 2006 Medicare Wellness for age 65+ 2006 BMI (ht and wt on same day) for age 18+ 04/06/2016 04/06/2015 Tetanus booster 04/22/2016 04/22/2006 RSV vaccine for adults or (1 - 1-dose 75+ series) 2016 COVID-19 vaccine series (1 - 2024- season) 2023 Influenza Vaccine (Season Ended) 2024 01/04/20 Hepatitis B series for 19+ Aged Out N o longer eligible based on patient's age to complete this topic Insurance [employer] [place] BLUE HB ONLY MEDICARE PART B HB ONLY [facility] * Guarantor: ETREZA CHEN Account Type Relation to Patient Date of Phone Billing Address Personal/Family Care Teams Wrap Checker Relationship Specialty Start Date End Date Josué Jorge MD [address] [place] [id number] [facility] - General 12/13/14
--- NOTE | 2024-09-01 11:27 | CRLHL7_ITS ---
For Patients: As a result of the Century Cures Act, medical imaging exams and procedure reports are released immediately into your electronic medical record. You may view this report before your referring provider. If you have questions, please contact your health care provider. Indication: Fall Technique: Frontal view of the pelvis and frontal and lateral views of the right femur Comparison: Right hip radiographs on December 18 2018 and prior studies Findings: Small region of angulation along the lateral cortex of the proximal right femur, inferior to the greater trochanter, new compared to prior exam, may represent an age-indeterminate, nondisplaced fracture. Otherwise, no additional fractures or malalignment. Right total hip arthroplasty without evidence of loosening. Similar-appearing small focus of heterotopic ossification seen just superior to the lesser trochanter. Osteoarthritic degenerative changes of the right knee. No right knee joint effusion. No suspicious osseous lesions. The soft tissues are without acute abnormality. Impression: Small region of angulation along the lateral cortex of the proximal right femur, inferior to the greater trochanter, new compared to prior exam, may represent an age-indeterminate, nondisplaced fracture. Otherwise, no additional fractures or malalignment. Dictated by Ronen Ramirez MD @ 09/01/2024 12:24:47 PM (Electronically Signed)
--- NOTE | 2024-09-01 11:38 | ED.GENADULT ---
HPI - General Adult General Date Seen: 09/01/24 Chief complaint: Hip Injury/Pain Stated complaint: fall Time Seen by Provider: 09/01/24 11:00 Source: patient Mode of arrival: wheelchair Limitations: no limitations History of Present Illness HPI narrative: Patient is an 83-year-old female presenting to the emergency department for right hip and leg pain. Yesterday she tripped and hurt her right leg around 9 or 22:00. Denies hitting her head. Is currently not on any blood thinners. Her was able to assist her to the bed. Since then she was able to go to the bathroom twice overnight but had to have her 's help and they scooted her to the bathroom on the chair. She has had difficulty standing up from the chair. She typically uses a walker but has been unable to bear any weight to the right leg since her fall. She has previous surgery to her right hip twice. She states her pain is much improved. Was given pain medication via EMS. She does states she is feeling anxious. Denies any numbness to that leg. Related Data Home Medications ?Medication ?Instructions ?Recorded ?Confirmed multivitamin 1 tab PO DAILY 12/12/21 09/01/24 aspirin 81 mg tablet,delayed 81 mg PO HS 05/18/24 09/01/24 release (Adult Aspirin Regimen) amlodipine 10 mg tablet 10 mg PO HS Hypertension 09/01/24 09/01/24 Previous Rx's ?Medication ?Instructions ?Recorded pantoprazole 20 mg tablet,delayed 20 mg PO DAILY GERD #90 tabs 01/21/24 release (Protonix) metoprolol tartrate 50 mg tablet 50 mg PO BID #120 tabs 04/14/24 losartan 50 mg tablet 50 mg PO DAILY #90 tabs 05/21/24 Allergies Allergy/AdvReac Type Severity Reaction Status Date / Time apixaban Allergy Intermediate Diarrhea Verified 05/18/24 09:25 Cephalosporins Allergy Intermediate Rash Verified 05/18/24 09:25 penicillin V Allergy Intermediate Rash Verified 05/18/24 09:25 Review of Systems Narrative: Pertinent systems reviewed and were negative unless stated in HPI PFSH [facility] Medical History Atrial fibrillation ?I48.91 - Unspecified atrial fibrillation (ICD-10) TIA (transient ischemic attack) ?G45.9 - Transient cerebral ischemic attack, unspecified (ICD-10) History of transient ischemic attack ?Z86.73 - Personal history of transient ischemic attack (TIA), and cerebral infarction without residual deficits (ICD-10) Hip fracture ?S72.009A - Fracture of unspecified part of neck of unspecified femur, initial encounter for closed fracture (ICD-10) Cervical radiculopathy due to osteoarthritis of spine ?M47.22 - Other spondylosis with radiculopathy, cervical region (ICD-10) Surgical History 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) ?Z96.641 - Presence of right artificial hip joint (ICD-10) S/P bladder repair (1998) ?Z98.890 - Other specified postprocedural states (ICD-10) Social History Narrative: , 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, 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 non-smoker social drinker What is your current living situation?: I presently have a place to live Problems where you live: no known problems In the past 12 months, utilities in danger of being shut off: no In past 12 months, lack of transportation kept you from medical appts, meetings, work, or getting things needed for daily living: no In the past 12 mos, have been you worried that your food would run out before you had money to buy more?: never true In the past 12 mos, the food you bought just didn't last and you didn't have money to buy more?: never true Smoking Status: Former smoker How often do you have a drink containing alcohol: 2-3 times a week How many standard drinks containing alcohol do you have on a typical day: 3 or 4 AUDIT-C Alcohol total score: 4 Non-prescribed substance use: denies use How often does anyone, including family, friends and others, physically hurt you: never How often does anyone, including family, friends and others, insult or talk down to you: never How often does anyone, including family, friends and others, threaten you with harm: never How often does anyone, including family, friends and others, scream or curse at you: never service: No Exam Narrative: Exam Narrative: Const: Well-nourished, Well-developed, in mild distress Eyes: PERRL, no conjunctival injection, and symmetrical lids HENT: Atraumatic external nose and ears. Moist mucous membranes. Neck: Symmetric, trachea midline, No thyromegaly. CVS: RRR, No murmurs or gallops. Peripheral pulses 2+ and equal in all extremities RESP: Unlabored respiratory effort. Clear to auscultation bilaterally. GI: Nontender/Nondistended, No rebound or guarding. MSK: No obvious deformities to her lower extremities but does have tenderness to palpation right groin and throughout the right thigh. Skin: Warm, Dry. No rashes or lesions. Neuro: Normal Muscle tone, No focal neurological deficits. Psych: Awake, Alert, & Oriented x3. Appropriate mood and affect. Const: Vital Signs, click to edit/add: Vital Signs - 24 hr 09/01/24 10:36 09/01/24 10:36 09/01/24 10:45 Temperature 98.3 F Pulse Rate 96 96 Pulse Rate [Pulse Oximeter] 110 H Respiratory Rate 18 Blood Pressure Blood Pressure [Ri ght Upper Arm] 131/81 Pulse Oximetry 96 95 96 Oxygen Delivery Me thod Room Air 09/01/24 11:00 09/01/24 11:15 09/01/24 11:30 Temperature Pulse Rate 103 H 110 H 105 H Pulse Rate [Pulse Oximeter] Respiratory Rate 18 Blood Pressure Blood Pressure [Ri ght Upper Arm] Pulse Oximetry 94 94 94 Oxygen Delivery Me thod 09/01/24 11:54 09/01/24 12:00 09/01/24 12:15 Temperature Pulse Rate 104 H 107 H 104 H Pulse Rate [Pulse Oximeter] Respiratory Rate Blood Pressure 135/84 Blood Pressure [Ri ght Upper Arm] Pulse Oximetry 93 97 95 Oxygen Delivery Me thod 09/01/24 12:16 Temperature Pulse Rate 96 Pulse Rate [Pulse Oximeter] Respiratory Rate Blood Pressure Blood Pressure [Ri ght Upper Arm] Pulse Oximetry 95 Oxygen Delivery Me thod Course Vital Signs Vital signs: Initial Vital Signs Temperature 98.3 F 09/01/24 10:36 Temperature Source Temporal Artery Scan 09/01/24 10:36 Pulse Rate 96 09/01/24 10:36 Respiratory Rate 18 09/01/24 10:36 Blood Pressure 131/81 06/25/25 10:36 Blood Pressure Mean 97 09/01/24 10:36 Blood Pressure Position Sitting 09/01/24 10:36 Pulse Oximetry 96 09/01/24 10:36 Oxygen Delivery Method Room Air 09/01/24 10:36 Vital Signs Temperature 98.3 F 09/01/24 10:36 Pulse Rate 96 09/01/24 10:36 Respiratory Rate 18 09/01/24 10:36 Blood Pressure 131/81 09/01/24 10:36 Pulse Oximetry 96 09/01/24 10:36 Oxygen Delivery Method Room Air 09/01/24 10:36 Temperature 98.3 F 09/01/24 10:36 Pulse Rate 96 09/01/24 12:16 Respiratory Rate 18 09/01/24 11:00 Blood Pressure 135/84 09/01/24 12:15 Pulse Oximetry 95 09/01/24 12:16 Oxygen Delivery Method Room Air 09/01/24 10:36 Medications Administered Medications: Discontinued Medications Generic Name Dose Route Start Last Admin Trade Name Kaylie PRN Reason Stop Dose Admin Lorazepam 0.5 mg 09/01/24 11:27 09/01/24 12:15 Lorazepam 0.5 Mg Tablet PO 09/01/24 11:28 0.5 mg ONCE ONE Administration Morphine Sulfate 2 mg 09/01/24 14:13 09/01/24 14:29 Morphine 2 Mg/Ml Inj IVP 09/01/24 14:14 2 mg ONCE ONE Administration Medical Decision Making MDM Narrative Medical decision making narrative: Patient is a 83-year-old female presenting for right hip pain. She is unable to function home right now seems to the pain. I do have concern for fractures. Will do x-rays of the right hip, thigh, knee. Will also do a CBC and BMP along with given her some Ativan for her anxiety. Lab work shows no concerning abnormalities. She did require 2 more mg of morphine for pain control. X-rays returned showing a likely nondisplaced fracture of indeterminate age of the greater trochanter. Due to this and will do CT scan for better evaluation. 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 I spoke to Orthopedics and states this is not surgical and she should be weight-bearing as tolerated. Spoke to patient and her family and they cannot manage her at home right now with this fracture and they would like her to be admitted. Patient be admitted to the hospitalist service. Lab Data Labs: Lab Results 09/01/24 Range/Units 12:00 WBC 9.00 (4.50-11.00) K/uL RBC 4.59 (4.00-5.20) m/uL Hgb 11.1 L (12.0-16.0) gm/dL Hct 34.7 (33.0-51.0) % MCV 76 L (80-100) fL MCH 24 L (26-34) pg MCHC 32 (32-36) gm/dL RDW Coeff of Sonia 16.0 H (11.5-15.5) % Plt Count 271 (140-440) K/uL Neut % (Auto) 75.8 H (42.0-72.0) % Lymph % (Auto) 11.3 L (20-44) % [place] % (Auto) 12.4 H (0.0-11.0) % Eos % (Auto) 0.0 (0.0-7.0) % Baso % (Auto) 0.3 (0.0-3.0) % Neut # (Auto) 6.80 (1.7-7.0) K/uL Lymph # (Auto) 1.00 (0.90-2.90) K/uL [place] # (Auto) 1.10 H (0.00-0.90) K/UL Eos # (Auto) 0.00 (0.00-0.50) K/uL Baso # (Auto) 0.03 (0.00-0.30) K/uL Abs Immat Gran (auto) 0.02 (0.00-0.30) K/uL Imm/Tot Granulo (auto) 0.2 % Sodium 134 L (135-149) mmol/L Potassium 4.2 (3.6-5.1) mmol/L Chloride 104 (96-114) mmol/L Carbon Dioxide 24 (20-32) mmol/L Anion Gap 6 L (7-15) mEq/L BUN 13 (7-30) mg/dL Creatinine 0.7 (0.5-1.5) mg/dL Estimated Creat Clear 39.03 Estimated GFR 86 ml/min Glucose 108 (60-115) mg/dL Calcium 8.8 (8.4-10.6) mg/dL Imaging Data Pelvis x-ray: Attestation: I have reviewed the pertinent imaging results. Radiologist's impression: Small region of angulation along the lateral cortex of the proximal right femur, inferior to the greater trochanter, new compared to prior exam, may represent an age-indeterminate, nondisplaced fracture. Otherwise, no additional fractures or malalignment. Dictated by Ronen Ramirez MD @ 09/01/2024 12:24:25 PM Femur x-ray: Attestation: I have reviewed the pertinent imaging results. Radiologist's impression: Small region of angulation along the lateral cortex of the proximal right femur, inferior to the greater trochanter, new compared to prior exam, may represent an age-indeterminate, nondisplaced fracture. Otherwise, no additional fractures or malalignment. Dictated by Ronen Ramirez MD @ 09/01/2024 12:24:[address]: Attestation: I have reviewed the pertinent imaging results. Radiologist's impression: Comminuted nondisplaced fracture of the greater trochanter into the posterolateral femoral metaphysis. Please note that all CT scans at this facility use dose modulation, iterative reconstruction, and/or weight-based dosing when appropriate to reduce radiation dose to as low as reasonably achievable. Dictated by Chester Hunt MD @ 09/01/2024 1:13:27 PM Discharge Plan Discharge Clinical Impression: Closed fracture of greater trochanter of right femur Qualifiers: Encounter type: initial encounter Fracture alignment: nondisplaced Qualified Code(s): S72.114A - Nondisplaced fracture of greater trochanter of right femur, initial encounter for closed fracture Patient Disposition: Admitted As Observation Condition: Stable
[2024-09-01 12:13] LABS: Basophils Absolute Auto 0.03 K/uL (0.00-0.30); Basophils Percent Auto 0.3 % (0.0-3.0); Hematocrit 34.7 % (33.0-51.0); Hemoglobin* 11.1 gm/dL (12.0-16.0); Immature Granulocytes Abs Auto 0.02 K/uL (0.00-0.30); Immature Granulocytes Pct Auto 0.2 %; Lymphocytes Percent Auto 11.3 % (20-44); Mean Corpuscular HGB Conc 32 gm/dL (32-36); Mean Corpuscular Hemoglobin 24 pg (26-34); Mean Corpuscular Volume 76 fL (80-100); Monocytes Percent Auto 12.4 % (0.0-11.0); Neutrophils Percent Auto 75.8 % (42.0-72.0); Platelet Count* 271 K/uL (140-440); Red Blood Count 4.59 m/uL (4.00-5.20)
[2024-09-01] MEDS: LORazepam 0.5 MG TABLET PO (12:15)
[2024-09-01 12:20] LABS: Slide Review Reflex No
[2024-09-01 12:32] LABS: Chloride* 104 mmol/L (96-114); Sodium* 134 mmol/L (135-149)
[2024-09-01 12:33] LABS: Potassium* 4.2 mmol/L (3.6-5.1)
[2024-09-01 12:36] LABS: Anion Gap 6 mEq/L (7-15); Blood Urea Nitrogen* 13 mg/dL (7-30); Calcium* 8.8 mg/dL (8.4-10.6); Carbon Dioxide* 24 mmol/L (20-32); Creatinine* 0.7 mg/dL (0.5-1.5); Est. Creatinine Clearance* 39.03; Estimated Glomerular Filt Rate 86 ml/min; Glucose* 108 mg/dL (60-115)
--- NOTE | 2024-09-01 12:39 | CRLHL7_ITS ---
For Patients: As a result of the Cures Act, medical imaging exams and procedure reports are released immediately into your electronic medical record. You may view this report before your referring provider. If you have questions, please contact your health care provider. INDICATION: Pain. Concern for fracture. COMPARISON: Plain films same date. TECHNIQUE: Multidetector imaging bony pelvis with axial coronal and sagittal right hip small field sequences. FINDINGS: Right total hip prosthesis. No asymmetric wear. No lucency or fracture around the acetabular cup. Patchy cement around the femoral stem. Acute fracture with some comminution but not much if any displacement through the lateral greater trochanter into the buckled posterior proximal metaphysis. No pelvic fracture. Moderate osteoarthritis left hip. Mild osteoarthrosis sacroiliac joints. No hematoma associated with fracture. No fluid in the peritoneum. Uterus is absent. Diverticula sigmoid colon. IMPRESSION: Comminuted nondisplaced fracture of the greater trochanter into the posterolateral femoral metaphysis. Please note that all CT scans at this facility use dose modulation, iterative reconstruction, and/or weight-based dosing when appropriate to reduce radiation dose to as low as reasonably achievable. Dictated by Chester Hunt MD @ 09/01/2024 1:13:27 PM (Electronically Signed)
[2024-09-01] MEDS: MORPHINE 2 MG/ML inj IVP (14:29)
--- NOTE | 2024-09-01 16:15 | P.IMHP_ITS ---
Assessment and Plan Assessment and plan (1) Closed fracture of greater trochanter of right femur: Problem comment: - s/p fall at home 08/31 (presumably mechanical) - nonoperative per Ortho to ER - therapy evaluations to assist with mobility and disposition planning Status: Acute (2) Atrial fibrillation: Problem comment: - off of anticoagulation since 04/11 cost constraints, typically rate controlled on Metoprolol - follow on telemetry Status: Acute (3) Hypertension: Problem comment: - age-appropriate control, continue home meds Status: Acute Plan - per above - and daughter updated bedside, questions answered Hospitalist- H&P: HPI History of Present Illness Date Seen: 09/01/24 Chief complaint: fall Narrative: Yi Chen is a 83 year old female with a history of rate controlled atrial fibrillation (on ASA), essential HTN, tremor, and GERD who presented to the emergency room today for right hip pain after a fall at home. She fell last night; circumstances unclear. She can not remember exactly where she fell in the home but does not believe she had any preceding lightheadedness, dizziness, or palpitations. Had a couple of drinks earlier in the evening (drinks socially, not daily per her and family report). Her was already in bed when she fell. Eventually, she was able to get herself up and back to bed. In order to go to the bathroom, her needed to push her around in a desk chair on wheels. Pain persisted throughout the day today and mobility remained limited; thus, ambulance was called. ER course and findings: - Hgb of 11.1 (was 15.4 03/2023), MCV 76 - HR 100s and irregular, EKG c/w a fib (known) - imaging (CT and Xray) revealed a comminuted nondisplaced fracture of the greater trochanter, R ELBERT prosthesis unaffected - orthopedic surgery consulted and deemed fracture non operative; WBAT Patient unable to bear weight in ER; admitted for therapy evaluations, monitoring of Hgb and HR. History obtained with daughter and in room. Review of Systems Status of ROS: Reports: 10 or more systems reviewed and unremarkable except as noted in History and below Medical Decision Making Medical Decision Making Code Status: DNR/DNI Has patient completed a Health Care Directive: No During This Stay, Who Would You Like To Make Decisions For You In The Event You Are Unable To Make Them For Yourself?: Juan Manuel or daughter Eliana [facility] Medical History (Updated 09/01/24 @ 17:57 by Ana Maria Meredith MD) Atrial fibrillation ?I48.91 - Unspecified atrial fibrillation (ICD-10) TIA (transient ischemic attack) ?G45.9 - Transient cerebral ischemic attack, unspecified (ICD-10) History of transient ischemic attack ?Z86.73 - Personal history of transient ischemic attack (TIA), and cerebral infarction without residual deficits (ICD-10) Hip fracture ?S72.009A - Fracture of unspecified part of neck of unspecified femur, initial encounter for closed fracture (ICD-10) Cervical radiculopathy due to osteoarthritis of spine ?M47.22 - Other spondylosis with radiculopathy, cervical region (ICD-10) Surgical History 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) ?Z96.641 - Presence of right artificial hip joint (ICD-10) S/P bladder repair (1998) ?Z98.890 - Other specified postprocedural states (ICD-10) Social History (Updated 09/01/24 @ 17:53 by Ana Maria Meredith MD) Narrative: to Juan Manuel, retired, 3 kids Non-smoker, Social drinker but not daily per patient/family DNR/DNI What is your current living situation?: I presently have a place to live Problems where you live: no known problems Problems where you live details: none In the past 12 months, utilities in danger of being shut off: no In past 12 months, lack of transportation kept you from medical appts, meetings, work, or getting things needed for daily living: no In the past 12 mos, have been you worried that your food would run out before you had money to buy more?: never true In the past 12 mos, the food you bought just didn't last and you didn't have money to buy more?: never true Smoking Status: Former smoker How often do you have a drink containing alcohol: 2-3 times a week Alcohol type: hard liquor How many standard drinks containing alcohol do you have on a typical day: 1 or 2 AUDIT-C Alcohol total score: 3 Non-prescribed substance use: denies use Caffeine: No How often does anyone, including family, friends and others, physically hurt you : never How often does anyone, including family, friends and others, insult or talk down to you: never How often does anyone, including family, friends and others, threaten you with harm: never How often does anyone, including family, friends and others, scream or curse at you: never service: No Meds Home Medications and Allergies Home Medications ?Medication ?Instructions ?Recorded ?Confirmed ?Type multivitamin 1 tab PO DAILY 12/12/2108/09 History pantoprazole 20 mg tablet,delayed 20 mg PO DAILY GERD #90 tabs 01/21/24 09/01/24 Rx release (Protonix) metoprolol tartrate 50 mg tablet 50 mg PO BID #120 tab s 04/14/24 09/01/24 Rx aspirin 81 mg tablet,delayed 81 mg PO HS 05/18/2408/09 History release (Adult Aspirin Regimen) losartan 50 mg tablet 50 mg PO DAILY #90 tabs 05/0809/01/24 Rx amlodipine 10 mg tablet 10 mg PO HS Hypertension 09/01/24 History Allergies Allergy/AdvReac Type Severity Reaction Status Date / Time apixaban Allergy Intermediate Diarrhea Verified 05/18/24 09:25 Cephalosporins Allergy Intermediate Rash Verified 05/18/24 09:25 penicillin V Allergy Intermediate Rash Verified 05/18/24 09:25 Exam Narrative: Exam Narrative: GEN: Alert and answering questions appropriately HEENT: EOMIs bilaterally, no scleral icterus CV: Irregularly irregular rhythm, rate in the 100s R: LCTA bilaterally without concerning wheezing, air movement adequate Ext: Right lower extremity is externally rotated, normal capillary refill, warm, + pulses Skin: No concerning skin lesions or rashes on exposed skin Neuro: + essential tremor noted (+ history of this) Psych: Appropriate Const: Vital Signs, click to edit/add: Vital Signs - 24 hr 09/01/24 10:36 09/01/24 10:36 09/01/24 10:45 Temperature 98.3 F Pulse Rate 96 96 Pulse Rate [Pulse Oximeter] 110 H Respiratory Rate 18 Blood Pressure Blood Pressure [Le ft Arm] Blood Pressure [Ri ght Upper Arm] 131/81 Pulse Oximetry 96 95 96 Oxygen Delivery Me thod Room Air 09/01/24 11:00 09/01/24 11:15 09/01/24 11:30 Temperature Pulse Rate 103 H 110 H 105 H Pulse Rate [Pulse Oximeter] Respiratory Rate 18 Blood Pressure Blood Pressure [Le ft Arm] Blood Pressure [Ri ght Upper Arm] Pulse Oximetry 94 94 94 Oxygen Delivery Me thod 09/01/24 11:54 09/01/24 12:00 09/01/24 12:15 Temperature Pulse Rate 104 H 107 H 104 H Pulse Rate [Pulse Oximeter] Respiratory Rate Blood Pressure 135/84 Blood Pressure [Le ft Arm] Blood Pressure [Ri ght Upper Arm] Pulse Oximetry 93 97 95 Oxygen Delivery Me thod 09/01/24 12:16 09/01/24 12:30 09/01/24 12:45 Temperature Pulse Rate 96 105 H 104 H Pulse Rate [Pulse Oximeter] Respiratory Rate Blood Pressure Blood Pressure [Le ft Arm] Blood Pressure [Ri ght Upper Arm] Pulse Oximetry 95 96 93 Oxygen Delivery Me thod 09/01/24 13:09 09/01/24 13:15 09/01/24 13:30 Temperature Pulse Rate 111 H 104 H Pulse Rate [Pulse Oximeter] Respiratory Rate Blood Pressure Blood Pressure [Le ft Arm] Blood Pressure [Ri ght Upper Arm] Pulse Oximetry 94 95 92 Oxygen Delivery Me thod 09/01/24 13:45 09/01/24 14:01 09/01/24 14:15 Temperature Pulse Rate 99 110 H 101 H Pulse Rate [Pulse Oximeter] Respiratory Rate Blood Pressure Blood Pressure [Le ft Arm] Blood Pressure [Ri ght Upper Arm] Pulse Oximetry 96 95 94 Oxygen Delivery Me thod 09/01/24 14:30 09/01/24 14:33 09/01/24 14:45 Temperature Pulse Rate 108 H 112 H 107 H Pulse Rate [Pulse Oximeter] Respiratory Rate Blood Pressure 131/86 Blood Pressure [Le ft Arm] Blood Pressure [Ri ght Upper Arm] Pulse Oximetry 94 94 92 Oxygen Delivery Me thod 09/01/24 15:00 09/01/24 15:28 Temperature 99.2 F Pulse Rate 105 H Pulse Rate [Pulse Oximeter] Respiratory Rate 18 20 Blood Pressure Blood Pressure [Le ft Arm] 139/89 Blood Pressure [Ri ght Upper Arm] Pulse Oximetry 94 91 Oxygen Delivery [facility] Hospitalist - H&P: Result Labs Labs: Short CBC 09/01/24 Range/Units 12:00 WBC 9.00 (4.50-11.00) K/uL Hgb 11.1 L (12.0-16.0) gm/dL Hct 34.7 (33.0-51.0) % Plt Count 271 (140-440) K/uL BMP 09/01/24 12:00 Sodium 134 L Potassium 4.2 Chloride 104 Carbon Dioxide 24 BUN 13 Creatinine 0.7 Glucose 108 Calcium 8.8
[2024-09-01] MEDS: ACETAMINOPHEN 325 MG TABLET 975 MG PO ×2 (16:57→23:34)
--- NOTE | 2024-09-01 17:29 | PC.NURSE ---
End of Shift Note: Patient was admitted from the ER after falling late last night. The circumstance surrounding her fall are a bit uncertain. Her did help her to bed and did help her during the night using an office chair to get her to the bathroom. She was starting to have some difficulty and EMS was called and brought her in to the ER. Imaging showed a non displaced hip fracture. Have not had her stand up even though have her she is supposed to be weight bearing as tolerated. Will wait for PT to evaluate her in the am. Have place a purewick in place. She admits she does not like how pain medication makes her feel. Explain to her it is very important to have her pain controlled as we need to be able to reposition her in bed. She has taken tylenol so far for me. Her is currently at bedside. Will continue to monitor until next shift arrives.
[2024-09-01 18:33] LABS: Hemoglobin* 10.9 gm/dL (12.0-16.0)
[2024-09-01] MEDS: SODIUM CHLORIDE 0.9 % (FLUSH) 10 ML SYRINGE 5 ML IVF (21:11)
[2024-09-01] MEDS: AMLODIPINE 10 MG TABLET PO (21:11)
[2024-09-01] MEDS: METOPROLOL TARTRATE 50 MG TABLET PO (21:11)
[2024-09-02 03:00] VITALS: BP 127/87; RESP 18; TEMP 36.6; O2SAT 93
[2024-09-02] MEDS: ACETAMINOPHEN 325 MG TABLET 975 MG PO ×2 (05:26→10:53)
--- NOTE | 2024-09-02 05:49 | PC.NURSE ---
Shift note: Patient alert and oriented, vitally stable. WBA with A1, walker and GB bedside commode. Rated pain at 2 and 3 at rest. Patient had adequate sleep. Takes pills whole with water.
[2024-09-02 06:36] LABS: Chloride* 104 mmol/L (96-114); Potassium* 3.3 mmol/L (3.6-5.1); Sodium* 134 mmol/L (135-149)
[2024-09-02 06:39] LABS: Anion Gap 6 mEq/L (7-15); Blood Urea Nitrogen* 10 mg/dL (7-30); Calcium* 8.5 mg/dL (8.4-10.6); Carbon Dioxide* 24 mmol/L (20-32); Creatinine* 0.6 mg/dL (0.5-1.5); Est. Creatinine Clearance* 37.45; Estimated Glomerular Filt Rate 90 ml/min; Glucose* 103 mg/dL (60-115)
[2024-09-02 07:15] LABS: Ferritin* 10.4 ng/mL (11.1-264.0)
[2024-09-02 08:00] VITALS: BP 119/84; RESP 18; TEMP 37; O2SAT 94
[2024-09-02] MEDS: LOSARTAN POTASSIUM 50 MG TABLET PO (08:43)
[2024-09-02] MEDS: SODIUM CHLORIDE 0.9 % (FLUSH) 10 ML SYRINGE 5 ML IVF (08:44)
[2024-09-02] MEDS: METOPROLOL TARTRATE 50 MG TABLET PO (08:44)
--- NOTE | 2024-09-02 08:49 | P.IMPN_ITS ---
Assessment and Plan Assessment and plan (1) Closed fracture of greater trochanter of right femur: Problem comment: - s/p fall at home 08/31 (presumably mechanical) - nonoperative per Ortho to ER and may weight bear as tolerated - therapy evaluations to assist with mobility and disposition planning - nursing surgical services director assisting with discharge planning - likely has osteoporosis given mechanism of fracture Status: Acute (2) Fall: Problem comment: - unwitnessed fall culminating in right greater trochanter fracture Status: Acute (3) Microcytic anemia: Problem comment: - Hgb 11.1 with MCV 76 (was 15.4/March), Ferritin 10.4 - unclear acuity, possibly related to fracture - follow Hgb Status: Acute (4) Atrial fibrillation: Problem comment: - off of anticoagulation since 04/11 cost constraints, typically rate controlled on Metoprolol - follow on telemetry Status: Acute (5) Tremor: Status: Acute (6) Hypertension: Problem comment: - age-appropriate control, continue home meds Status: Acute (7) Osteoarthritis: Status: Acute Plan 1. Reviewed impression, plan, recommendations with patient 2. Answered her questions to her satisfaction 3. Await assessments to establish safe discharge disposition 4. Patient agreeable with above stated plans and recommendations Total Time Spent Total Time Spent: 40 minutes Subjective Date Seen: 09/02/24 Interval history: Admission history of present illness: ?83 year old female with a history of rate controlled atrial fibrillation (on ASA), essential HTN, tremor, and GERD who presented to the emergency room today for right hip pain after a fall at home. She fell last night; circumstances unclear. She can not remember exactly where she fell in the home but does not believe she had any preceding lightheadedness, dizziness, or palpitations. Had a couple of drinks earlier in the evening (drinks socially, not daily per her and family report). Her was already in bed when she fell. Eventually, she was able to get herself up and back to bed. In order to go to the bathroom, her needed to push her around in a desk chair on wheels. Pain persisted throughout the day today and mobility remained limited; thus, ambulance was called. ?ER course and findings: - Hgb of 11.1 (was 15.4 03/2023), MCV 76 - HR 100s and irregular, EKG c/w a fib (known) - imaging (CT and Xray) revealed a comminuted nondisplaced fracture of the greater trochanter, R ELBERT prosthesis unaffected - orthopedic surgery consulted and deemed fracture non operative; WBAT? 09/02/2024, hospital day 2: Denies pain when resting, not moving, nonweightbearing. Increased discomfort with movement and weight-bearing. Restless night. Denies other concerns or problems. Eating and drinking. No nausea or vomiting. No lightheadedness, orthostasis, near-syncope or syncope. Denies chest heaviness, pressure, tightness, pain. Denies dyspnea at rest, paroxysmal nocturnal dyspnea, orthopnea, dyspnea with exertion. Denies cough. Baseline essential tremor affecting voice, head, upper extremities. Exam Narrative: Exam Narrative: Examine her in her hospital. Appears comfortable. Alert and oriented x4. Vision and hearing are adequate. Lungs are clear to auscultation. Heart tones are chaotic, consistent with atrial fibrillation. Abdomen with active bowel sounds, soft, nontender. Const: Vital Signs, click to edit/add: Vital Signs - 24 hr 09/01/24 10:36 09/01/24 10:36 09/01/24 10:45 Temperature 98.3 F Pulse Rate 96 96 Pulse Rate [Pulse Oximeter] 110 H Respiratory Rate 18 Blood Pressure Blood Pressure [Le ft Arm] Blood Pressure [Ri ght Upper Arm] 131/81 Pulse Oximetry 96 95 96 Oxygen Delivery Me thod Room Air 09/01/24 11:00 09/01/24 11:15 09/01/24 11:30 Temperature Pulse Rate 103 H 110 H 105 H Pulse Rate [Pulse Oximeter] Respiratory Rate 18 Blood Pressure Blood Pressure [Le ft Arm] Blood Pressure [Ri ght Upper Arm] Pulse Oximetry 94 94 94 Oxygen Delivery Me thod 09/01/24 11:54 09/01/24 12:00 09/01/24 12:15 Temperature Pulse Rate 104 H 107 H 104 H Pulse Rate [Pulse Oximeter] Respiratory Rate Blood Pressure 135/84 Blood Pressure [Le ft Arm] Blood Pressure [Ri ght Upper Arm] Pulse Oximetry 93 97 95 Oxygen Delivery Me thod 09/01/24 12:16 09/01/24 12:30 09/01/24 12:45 Temperature Pulse Rate 96 105 H 104 H Pulse Rate [Pulse Oximeter] Respiratory Rate Blood Pressure Blood Pressure [Le ft Arm] Blood Pressure [Ri ght Upper Arm] Pulse Oximetry 95 96 93 Oxygen Delivery Me thod 09/01/24 13:09 09/01/24 13:15 09/01/24 13:30 Temperature Pulse Rate 111 H 104 H Pulse Rate [Pulse Oximeter] Respiratory Rate Blood Pressure Blood Pressure [Le ft Arm] Blood Pressure [Ri ght Upper Arm] Pulse Oximetry 94 95 92 Oxygen Delivery Me thod 09/01/24 13:45 09/01/24 14:01 09/01/24 14:15 Temperature Pulse Rate 99 110 H 101 H Pulse Rate [Pulse Oximeter] Respiratory Rate Blood Pressure Blood Pressure [Le ft Arm] Blood Pressure [Ri ght Upper Arm] Pulse Oximetry 96 95 94 Oxygen Delivery Me thod 09/01/24 14:30 09/01/24 14:33 09/01/24 14:45 Temperature Pulse Rate 108 H 112 H 107 H Pulse Rate [Pulse Oximeter] Respiratory Rate Blood Pressure 131/86 Blood Pressure [Le ft Arm] Blood Pressure [Ri ght Upper Arm] Pulse Oximetry 94 94 92 Oxygen Delivery Me thod 09/01/24 15:00 09/01/24 15:28 09/01/24 17:35 Temperature 99.2 F Pulse Rate 105 H 104 H Pulse Rate [Pulse Oximeter] Respiratory Rate 18 20 Blood Pressure Blood Pressure [Le ft Arm] 139/89 Blood Pressure [Ri ght Upper Arm] Pulse Oximetry 94 91 Oxygen Delivery Me thod 09/01/24 19:00 09/01/24 23:00 09/01/24 23:00 Temperature 98.6 F 97.6 F Pulse Rate Pulse Rate [Pulse Oximeter] Respiratory Rate 18 18 18 Blood Pressure Blood Pressure [Le ft Arm] 132/77 121/61 Blood Pressure [Ri ght Upper Arm] Pulse Oximetry 93 94 Oxygen Delivery Me thod Room Air Room Air 09/01/24 23:00 09/02/24 03:00 Temperature 97.9 F Pulse Rate 77 Pulse Rate [Pulse Oximeter] Respiratory Rate 18 Blood Pressure Blood Pressure [Le ft Arm] 127/87 Blood Pressure [Ri ght Upper Arm] Pulse Oximetry 93 Oxygen Delivery Me thod Room Air Labs Labs: Laboratory Results - last 24 hr 09/01/24 09/01/24 09/02/24 12:00 18:21 05:58 WBC 9.00 RBC 4.59 Hgb 11.1 L 10.9 L Hct 34.7 MCV 76 L MCH 24 L MCHC 32 RDW Coeff of Sonia 16.0 H Plt Count 271 Neut % (Auto) 75.8 H Lymph % (Auto) 11.3 L Tripp % (Auto) 12.4 H Eos % (Auto) 0.0 Baso % (Auto) 0.3 Neut # (Auto) 6.80 Lymph # (Auto) 1.00 Tripp # (Auto) 1.10 H Eos # (Auto) 0.00 Baso # (Auto) 0.03 Abs Immat Gran (auto) 0.02 Imm/Tot Granulo (auto) 0.2 Sodium 134 L 134 L Potassium 4.2 3.3 L Chloride 104 104 Carbon Dioxide 24 24 Anion Gap 6 L 6 L BUN 13 10 Creatinine 0.7 0.6 Estimated Creat Clear 39.03 37.45 Estimated GFR 86 90 Glucose 108 103 Calcium 8.8 8.5 Ferritin 10.4 L
[2024-09-02] MEDS: OMEPRAZOLE 20 MG CAPSULE DR PO (08:50)
[2024-09-02 10:10] LABS: Basophils Absolute Auto 0.03 K/uL (0.00-0.30); Basophils Percent Auto 0.5 % (0.0-3.0); Eosinophils Absolute Auto 0.08 K/uL (0.00-0.50); Eosinophils Percent Auto 1.2 % (0.0-7.0); Hematocrit 32.7 % (33.0-51.0); Hemoglobin* 10.4 gm/dL (12.0-16.0); Immature Granulocytes Abs Auto 0.01 K/uL (0.00-0.30); Immature Granulocytes Pct Auto 0.2 %; Mean Corpuscular HGB Conc 32 gm/dL (32-36); Mean Corpuscular Hemoglobin 24 pg (26-34); Mean Corpuscular Volume 76 fL (80-100); Monocytes Percent Auto 16.5 % (0.0-11.0); Neutrophils Absolute Auto 4.04 K/uL (1.7-7.0); Neutrophils Percent Auto 60.6 % (42.0-72.0); Platelet Count* 250 K/uL (140-440); RDW Coefficient of Variation % 16.5 % (11.5-15.5); Red Blood Count 4.33 m/uL (4.00-5.20); White Blood Count* 6.66 K/uL (4.50-11.00)
[2024-09-02 10:11] LABS: Slide Review Reflex No
--- NOTE | 2024-09-02 11:16 | XR_ITS ---
Patient: TEREZA LUND Facility:?[facility] Patient ID:?[id number] Site Patient ID:?[id number]. Site :?[id number] Study:?XRay-Knee Right 2 view-09/02/2024 12:16:38 PM Ordering Physician:Gabby Quijano Final Report: INDICATION: Pain status post fall 08/31/24. TECHNIQUE: Right knee 2 view. COMPARISON: Right femur radiographs 09/01/2024. FINDINGS: Bones: Lateral view is limited by overlying fabric artifact. No acute fracture or suspicious bone lesion. Alignment is normal. Joints: Mild narrowing of the medial and lateral compartments with chondrocalcinosis. Severe narrowing of the patellofemoral compartment. Mild tricompartmental spurring. No significant joint effusion. Soft tissues: Mild soft tissue swelling about the knee. IMPRESSION: Degenerative changes of the knee with mild soft tissue swelling. No fracture identified. Dictated by Tiffany Dubois MD @ 09/02/2024 12:33:09 PM Signed by:?Tiffany Dubois MD @09/02/2024 12:33:09 PM (Electronic Signature)
--- NOTE | 2024-09-02 12:03 | PM.DS1 ---
DS: Providers Provider Date Seen: 09/02/24 Date of admission: 09/01/24 16:16 Primary care physician: Josué Jorge MD Admitting Clinician: Lonnie Bhatt MD Consults: 09/01/24 16:33 Consult to Occupational Therapy [CONS] Routine Comment: Reason(s) for OT Consult:: Evaluate and Treat Any Restrictions?:: Wt Bearing as Tolerated Consult to Physical Therapy [CONS] Routine Comment: Reason(s) for PT Consult:: Evaluate and Treat Any Restrictions?:: Wt Bearing as Tolerated Consult to Rhythmic Gymnastics Coach [CONS] Routine Comment: Reason for Consult:: Discharge Planning Needs Attending Physician on discharge: Samm Bah MD Date of Discharge: 09/02/24 DS: Diagnosis Discharge Diagnosis (1) Closed fracture of greater trochanter of right femur: Status: Acute Problem details: - s/p fall at home 08/31 (presumably mechanical) - nonoperative per Ortho to ER and may weight bear as tolerated - therapy evaluations to assist with mobility and disposition planning - computing services director assisting with discharge planning - likely has osteoporosis given mechanism of fracture (2) Fall: Status: Acute Problem details: - unwitnessed fall culminating in right greater trochanter fracture (3) Osteoporosis: Status: Acute Problem details: - probable osteoporosis, consider additional testing and/or treatment in follow-up with primary care physician (4) Microcytic anemia: Status: Acute Problem details: - Hgb 11.1 with MCV 76 (was 15.4/March), Ferritin 10.4 - unclear acuity, possibly related to fracture - follow Hgb (5) Atrial fibrillation: Status: Acute Problem details: - off of anticoagulation since 2023 04/ cost constraints, typically rate controlled on Metoprolol - follow on telemetry (6) Tremor: Status: Acute (7) Osteoarthritis: Status: Acute (8) Hypertension: Status: Acute Problem details: - age-appropriate control, continue home meds DS: Summary Hospital Course Hospital Course: Admission history of present illness: ?83 year old female with a history of rate controlled atrial fibrillation (on ASA), essential HTN, tremor, and GERD who presented to the emergency room today for right hip pain after a fall at home. She fell last night; circumstances unclear. She can not remember exactly where she fell in the home but does not believe she had any preceding lightheadedness, dizziness, or palpitations. Had a couple of drinks earlier in the evening (drinks socially, not daily per her and family report). Her was already in bed when she fell. Eventually, she was able to get herself up and back to bed. In order to go to the bathroom, her needed to push her around in a desk chair on wheels. Pain persisted throughout the day today and mobility remained limited; thus, ambulance was called. ?ER course and findings: - Hgb of 11.1 (was 15.4 03/2023), MCV 76 - HR 100s and irregular, EKG c/w a fib (known) - imaging (CT and Xray) revealed a comminuted nondisplaced fracture of the greater trochanter, R ELBERT prosthesis unaffected - orthopedic surgery consulted and deemed fracture non operative; WBAT? 09/02/2024, hospital day 2: Denies pain when resting, not moving, nonweightbearing. Increased discomfort with movement and weight-bearing. Restless night. Denies other concerns or problems. Eating and drinking. No nausea or vomiting. No lightheadedness, orthostasis, near-syncope or syncope. Denies chest heaviness, pressure, tightness, pain. Denies dyspnea at rest, paroxysmal nocturnal dyspnea, orthopnea, dyspnea with exertion. Denies cough. Baseline essential tremor affecting voice, head, upper extremities. Patient notes right knee pain with weight-bearing, which is new. Preliminary review of x-ray of the right knee demonstrates no acute fracture. Patient elects to be discharged home with home care physical therapy and occupational therapy rather than transitional care services. Orthopedic surgery has determined that patient may weightbear as tolerated. We have attempted this in the hospital and she has done well with the use of the walker. Status at Discharge Functional status at discharge: uses cane/walker Time Spent with Patient Time attestation: Total time spent providing and/or coordinating discharge services: Time spent: Greater than 30 minutes Exam Narrative: Exam Narrative: Examine her in her hospital. Appears comfortable. Alert and oriented x4. Vision and hearing are adequate. Lungs are clear to auscultation. Heart tones are chaotic, consistent with atrial fibrillation. Abdomen with active bowel sounds, soft, nontender. I observe as she works with the physical therapy and occupational therapy staff. She is able to transfer and ambulate independently with use of walker with precautions provided her. Const: Vital Signs, click to edit/add: Vital Signs - 24 hr 09/01/24 12:15 09/01/24 12:16 09/01/24 12:30 Temperature Pulse Rate 104 H 96 105 H Respiratory Rate Blood Pressure 135/84 Blood Pressure [Le ft Arm] Pulse Oximetry 95 95 96 Oxygen Delivery Me thod 09/01/24 12:45 09/01/24 13:09 09/01/24 13:15 Temperature Pulse Rate 104 H 111 H Respiratory Rate Blood Pressure Blood Pressure [Le ft Arm] Pulse Oximetry 93 94 95 Oxygen Delivery Me thod 09/01/24 13:30 09/01/24 13:45 09/01/24 14:01 Temperature Pulse Rate 104 H 99 110 H Respiratory Rate Blood Pressure Blood Pressure [Le ft Arm] Pulse Oximetry 92 96 95 Oxygen Delivery Me thod 09/01/24 14:15 09/01/24 14:30 09/01/24 14:33 Temperature Pulse Rate 101 H 108 H 112 H Respiratory Rate Blood Pressure 131/86 Blood Pressure [Le ft Arm] Pulse Oximetry 94 94 94 Oxygen Delivery Me thod 09/01/24 14:45 09/01/24 15:00 09/01/24 15:28 Temperature 99.2 F Pulse Rate 107 H 105 H Respiratory Rate 18 20 Blood Pressure Blood Pressure [Le ft Arm] 139/89 Pulse Oximetry 92 94 91 Oxygen Delivery Me thod 09/01/24 17:35 09/01/24 19:00 09/01/24 23:00 Temperature 98.6 F Pulse Rate 104 H Respiratory Rate 18 18 Blood Pressure Blood Pressure [Le ft Arm] 132/77 Pulse Oximetry 93 Oxygen Delivery Me thod Room Air 09/01/24 23:00 09/01/24 23:00 09/02/24 03:00 Temperature 97.6 F 97.9 F Pulse Rate 77 Respiratory Rate 18 18 Blood Pressure Blood Pressure [Le ft Arm] 121/61 127/87 Pulse Oximetry 94 93 Oxygen Delivery Me thod Room Air Room Air 09/02/24 08:00 Temperature 98.6 F Pulse Rate Respiratory Rate 18 Blood Pressure Blood Pressure [Le ft Arm] 119/84 Pulse Oximetry 94 Oxygen Delivery Me thod Room Air DS: Data Data Completed and Pending Labs on day of discharge: Labs from last 24 hours 0609/01/24 09/01/24 05:58 18:21 12:00 WBC 6.66 9.00 RBC 4.33 4.59 Hgb 10.4 L 10.9 L 11.1 L Hct 32.7 L 34.7 MCV 76 L 76 L MCH 24 L 24 L MCHC 32 32 RDW Coeff of Sonia 16.5 H 16.0 H Plt Count 250 271 Neut % (Auto) 60.6 75.8 H Lymph % (Auto) 21.0 11.3 L [place] % (Auto) 16.5 H 12.4 H Eos % (Auto) 1.2 0.0 Baso % (Auto) 0.5 0.3 Neut # (Auto) 4.04 6.80 Lymph # (Auto) 1.40 1.00 [place] # (Auto) 1.10 H 1.10 H Eos # (Auto) 0.08 0.00 Baso # (Auto) 0.03 0.03 Abs Immat Gran (auto) 0.01 0.02 Imm/Tot Granulo (auto) 0.2 0.2 Sodium 134 L 134 L Potassium 3.3 L 4.2 Chloride 104 104 Carbon Dioxide 24 24 Anion Gap 6 L 6 L BUN 10 13 Creatinine 0.6 0.7 Estimated Creat Clear 37.45 39.03 Estimated GFR 90 86 Glucose 103 108 Calcium 8.5 8.8 Ferritin 10[address] scan of right hip: Attestation: I have reviewed the pertinent imaging results. Radiologist's impression: FINDINGS: Right total hip prosthesis. No asymmetric wear. No lucency or fracture around the acetabular cup. Patchy cement around the femoral stem. Acute fracture with some comminution but not much if any displacement through the lateral greater trochanter into the buckled posterior proximal metaphysis. No pelvic fracture. Moderate osteoarthritis left hip. Mild osteoarthrosis sacroiliac joints. No hematoma associated with fracture. No fluid in the peritoneum. Uterus is absent. Diverticula sigmoid colon. IMPRESSION: Comminuted nondisplaced fracture of the greater trochanter into the posterolateral femoral metaphysis. Discharge Plan Discharge Disposition: Home, Self-Care Date of Admission: 09/01/24 16:16 Attending Provider on Discharge: Samm Bah Primary Care Provider: Josué Jorge Condition: Stable Anticipated Discharge Date/Time: 09/02/24 15:00 Discharge Medications: New acetaminophen 325 mg Tablet 650 mg PO Q6H 30 Days Qty: 240 0RF oxycodone 5 mg Tablet 2.5 mg PO QID PRN (Reason: Pain) 10 Days Qty: 10 0RF Continued multivitamin Tablet 1 tab PO DAILY aspirin [Adult Aspirin Regimen] 81 mg tablet,delayed release (DR/EC) 81 mg PO HS amlodipine 10 mg tablet 10 mg PO HS pantoprazole [Protonix] 20 mg tablet,delayed release (DR/EC) 20 mg PO DAILY Qty: 90 3RF metoprolol tartrate 50 mg tablet 50 mg PO BID Qty: 120 2RF losartan 50 mg tablet 50 mg PO DAILY Qty: 90 1RF Discharge Orders: Discharge Order (Routine); Ordered 09/02/24 Ordered By: Samm Bah Patient Education: How to Choose and Use a Walker (GEN), How to Transfer a Person Safely (DC) Additional Instructions: 1. Follow-up with primary care physician in 5-10 days, including consideration of additional testing or treatment for osteoporosis 2. Follow-up with orthopedic surgeon in 10-14 day 3. Home PT and OT to assess and treat Activity Level: Activity as Tolerated, Weight Bearing as Tolerated and Use Walker Discharge Diet: Heart Healthy (2 gm sodium, low fat) Follow Up Appointments: Josué Jorge MD [Primary Care Provider, Internal Medicine] Forms: [employer] Info Instructions
[2024-09-02 12:25] VITALS: BP 126/85; PULSE 85; RESP 18; O2SAT 96
--- NOTE | 2024-09-02 13:45 | PC.NURSE ---
Pt doing well today. VSS. Pain is very well controlled with scheduled Tylenol and ice. Pt is tolerating weight on right leg, ambulating with walker, tolerating well. Pt is tolerating regular diet. Resting comfortably at this time.
--- NOTE | 2024-09-02 14:25 | PC.SOCIAL ---
Discharge planning: Met with pt regarding d/c plan. Pt had been considering a short term rehab stay at discharge but has decided she wants to go home with home health care. PT/OT is in agreement with this plan. Provided pt with list of home health agencies with Department of Health ratings for each facility. Pt states she has no preference and requested social work instructor find the agency who is contracted with her insurance that can provide the services in the next few days if possible. Called [facility], who confirmed they are contracted with pt's insurance but have no availability for two weeks. Called [facility] and spoke with Jerald in intake, who states they can open pt to services in 24-72 hours and are contracted with pt's insurance. Secure emailed a packet with MD orders and requested information to [facility]. They will confirm and follow up with pt regarding schedule or call this social work instructor back if they are unable to provide services.Prior to discharge, met with pt who is aware and agree with arrangements made for Home Health Follow up.
== END 2024-09-02 14:30 | disposition home health service (06) | DRG 536 ==
LOC: ED 14:54 → MEDSURG 17:38
PROVIDERS: Admitting Provider Family Medicine; Emergency Provider Student in an Organized Health Care Education/Training Program; PCP Internal Medicine; Visit Provider Family Medicine
DX: S72.114A Nondisplaced fracture of greater trochanter of right femur, initial encounter for closed fracture (principal); W19.XXXA Unspecified fall, initial encounter; Y92.009 Unspecified place in unspecified non-institutional (private) residence as the place of occurrence of the external cause; D50.9 Iron deficiency anemia, unspecified; F41.9 Anxiety disorder, unspecified; I48.91 Unspecified atrial fibrillation; Z79.01 Long term (current) use of anticoagulants; I10 Essential (primary) hypertension; M81.0 Age-related osteoporosis without current pathological fracture; K21.9 Gastro-esophageal reflux disease without esophagitis; R25.1 Tremor, unspecified; M47.22 Other spondylosis with radiculopathy, cervical region; Z96.641 Presence of right artificial hip joint; Z86.73 Personal history of transient ischemic attack (TIA), and cerebral infarction without residual deficits; Z79.82 Long term (current) use of aspirin
CPT/HCPCS: 36415; 72170; 73552; 73560; 73700; 80048; 82728; 85018; 85025; 93005; 94761; 97110; 97116; 97161; 97165; 97530; 99285; A9270; J2270

== ENCOUNTER 2025-01-13 07:50 | Outpatient (CLI) | payer MEDICARE, SELFPAY | END 2025-01-13 07:51 | disposition home or self-care (01) | LOC: NFLDREF 01-17 03:26 | PROVIDERS: PCP Internal Medicine; Referring Provider Internal Medicine; Visit Provider Internal Medicine | DX: I10 Essential (primary) hypertension (principal) | CPT/HCPCS: 80053; 80061 ==